=== PATIENT | female | born 1955 | race Caucasian/White ===

== ENCOUNTER 2017-01-15 19:40 | Inpatient (IN) | payer MEDICARE ==
--- NOTE | 2017-01-15 19:56 | ED Physician Chart ---
Chief Complaint/HPI - Patient Information Date Seen:: 01/15/17 Time Seen:: 19:30 Chief Complaint:: pruritic rash History of Present Illness:: patient has had a widespread pruritic rash (not on face, scalp, neck but especially prominent in groin) for 4 months. Has seen icu specialist 4 times and been to EDs twice. Dryer And Washer Mechanic diagnosed dermatitis and prescribed a cream without improvement; did not mention possible scabies. Patient has had a 30 lb weight loss over the last 4 months. Allergies:: Allergies Allergy/AdvReac Type Severity Reaction Status Date / Time clonidine Allergy Verified 07/19/16 04:54 Penicillins [PCN] Allergy Verified 07/19/16 04:54 Historian:: Patient, EMS Review:: Nurse's Note Reviewed Review of Systems - Review of Systems General/Constitutional: No fever, No chills Skin: Skin lesions, Rash Head: No headache Eyes: No loss of vision ENT: No earache Neck: No neck pain, No swelling Cardio Vascular: No chest pain, No palpitations Pulmonary: No SOB GI: No nausea, No vomiting, No diarrhea G/U: No dysuria, No frequency Musculoskeletal: No bone or joint pain, No back pain Endocrine: No polyuria, No polydipsia Psychiatric: No prior psych history Hematopoietic: No bruising Allergic/Immuno: No urticaria, No angioedema Neurological: No syncope Past Medical History - Past Medical History Past Medical History: HTN, Other (depression; tinea pedis; Alb[place]'s disease; bipolar) Family History: None Social History: Smoker, Care Facility Surgical History: None Psychiatricy History: Depression, Bipolar Medication: Reviewed Family Medical History - Family Member Mother History Unknown: Yes Ethnicity: Unknown Living Status: Unknown Physical Exam - Physical Examination General/Constitutional: Well-developed, well-nourished, Alert, No distress Head: Atraumatic Eyes: Lids, conjuctiva normal, PERRL Skin: No rash, No ecchymosis Other Skin comments:: numerous small crusts from scratching noted ENMT: External ears, nose nl, TM canals nl, Nasal exam nl, Lips, teeth, gums nl Neck: No nuchal rigidity Respiratory: Nl effort/Exclusion, Clear to Auscultation, No Wheeze/Rhonchi/Rales Cardio Vascular: RRR, No murmur, gallop, rubs, NL S1 S2 GI: No tenderness/rebounding/guarding, No organomegaly, No hernia, Normal BS's, Nondistended, No mass/bruits, No McBurney tenderness : No CVA tenderness Other Extremities comments:: skin lesions noted as stated under skin. Neuro/Psych: Alert/oriented, No focal deficits Misc: No paraspinal tenderness Labs/Radiology/EKG Results - Lab Results Comments:: Laboratory Results - last 24 hr 01/15/17 01/15/17 21:06 21:06 WBC 13.1 H RBC 4.79 Hgb 15.0 Hct 44.9 MCV 93.7 MCH 31.3 H MCHC Differential 33.4 RDW 13.6 Plt Count 248 MPV 8.6 Neutrophils % 57.6 Lymphocytes % 26.6 Monocytes % 3.2 Eosinophils % 12.4 H Basophils % 0.2 Sodium 138 Potassium 4.1 Chloride 103 Carbon Dioxide 31.6 H Anion Gap 7.5 BUN 26 H Creatinine 1.3 H Est GFR ( Amer) 53.7 Est GFR (Non-Af Amer) 44.4 BUN/Creatinine Ratio 20.0 Glucose 103 Calcium 9.8 ED Septic Shock - . Is Septic Shock (SBP<90, OR Lactate>4 mmol\L) present?: No Reassessment (Disposition) - Reassessment Reassessment Condition:: Unchanged - Diagnosis Diagnosis:: leukocytosis; scabies - Patient Disposition Admitted to:: Med/Surg Spoke to:: Estela Shirley Admitting Medical Physician:: Estela Shirley Condition at Disposition:: Stable, Unchanged
[2017-01-15 21:17] LABS: % BASOPHILS 0.2 % (0.0-2.0); % EOSINOPHILS 12.4 % (0.0-5.0); % LYMPHOCYTES 26.6 % (20.0-50.0); % MONOCYTES 3.2 % (2.0-10.0); % NEUTROPHILS 57.6 % (40.0-80.0); HEMATOCRIT 44.9 % (35.0-45.0); MEAN CELL VOLUME 93.7 fl (81-100); MEAN CORPUSCULAR HEMOGLOBIN 31.3 pg (27.0-31.0); MEAN CORPUSCULAR HGB CONC 33.4 pg (28.0-36.0); MEAN PLATELET VOLUME 8.6 fl; NEUTROPHILE ABSOLUTE 7.6 Th/cmm (1.8-8.0); PLATELET COUNT 248 Th/cmm (150-400); RED BLOOD COUNT 4.79 Mil/cmm (3.80-5.10); RED CELL DISTRIBUTION WIDTH 13.6 % (11.5-20.0)
[2017-01-15 21:26] LABS: WHITE BLOOD COUNT 13.1 Th/cmm (4.8-10.8)
[2017-01-15 21:30] LABS: ANION GAP 7.5 (7.0-16.0); CALCIUM SERUM 9.8 mg/dL (8.6-10.3); CARBON DIOXIDE 31.6 mEq/L (21.0-31.0); CREATININE - SERUM 1.3 mg/dL (0.6-1.2); POTASSIUM SERUM 4.1 mEq/L (3.5-5.1)
[2017-01-16 01:10] VITALS: BP 135/80
[2017-01-16] MEDS ORDERED: Maalox 30 mL Cup PO PRN (02:10)
[2017-01-16 08:12] LABS: URINE BILIRUBIN NEGATIVE (NEGATIVE); URINE BLOOD NEGATIVE (NEGATIVE); URINE COLOR YELLOW; URINE GLUCOSE (UA) NEGATIVE (NEGATIVE); URINE KETONE NEGATIVE (NEGATIVE); URINE PROTEIN NEGATIVE (NEGATIVE); URINE UROBILINOGEN 0.2 E.U./dL (0.2 - 1.0)
[2017-01-16 08:14] LABS: URINE BACTERIA NONE SEEN /hpf (NONE SEEN); URINE EPITHELIAL CELLS OCCASIONAL /lpf (FEW); URINE RBC NONE SEEN /hpf (0-5); URINE WBC NONE SEEN /hpf (0-5)
[2017-01-16] MEDS: Lactulose 10 Gm/15 mL 30mL UDC PO SCH (10:43)
[2017-01-16] MEDS: NIFEdipine 30 mg ER Tab PO SCH (10:44)
[2017-01-16] MEDS: Nystatin Cream 100,000 u/gm Cream 15 gm TP SCH ×2 (10:48→16:40)
[2017-01-16] MEDS ORDERED: VTE Chemical Prophylaxis Screen/Admission MC PRN (14:00)
--- NOTE | 2017-01-16 15:16 | General Progress Note ---
Objective - Results Result Diagrams: 01/15/17 21:06 01/15/17 21:06 Recent Labs: Laboratory Last Values WBC 13.1 Th/cmm (4.8-10.8) H 01/15/17 21:06 RBC 4.79 Mil/cmm (3.80-5.10) 01/15/17 21:06 Hgb 15.0 gm/dL (11.7-15.5) 01/15/17 21:06 Hct 44.9 % (35.0-45.0) 01/15/17 21:06 MCV 93.7 fl (81-100) 01/15/17 21:06 MCH 31.3 pg (27.0-31.0) H 01/15/17 21:06 MCHC Differential 33.4 pg (28.0-36.0) 01/15/17 21:06 RDW 13.6 % (11.5-20.0) 01/15/17 21:06 Plt Count 248 Th/cmm (150-400) 01/15/17 21:06 MPV 8.6 fl 01/15/17 21:06 Neutrophils % 57.6 % (40.0-80.0) 01/15/17 21:06 Lymphocytes % 26.6 % (20.0-50.0) 01/15/17 21:06 Monocytes % 3.2 % (2.0-10.0) 01/15/17 21:06 Eosinophils % 12.4 % (0.0-5.0) H 01/15/17 21:06 Basophils % 0.2 % (0.0-2.0) 01/15/17 21:06 Sodium 138 mEq/L (136-145) 01/15/17 21:06 Potassium 4.1 mEq/L (3.5-5.1) 01/15/17 21:06 Chloride 103 mEq/L (98-107) 01/15/17 21:06 Carbon Dioxide 31.6 mEq/L (21.0-31.0) H 01/15/17 21:06 Anion Gap 7.5 (7.0-16.0) 01/15/17 21:06 BUN 26 mg/dL (7-25) H 01/15/17 21:06 Creatinine 1.3 mg/dL (0.6-1.2) H 01/15/17 21:06 Est GFR ( Amer) 53.7 ml/min (>90) 01/15/17 21:06 Est GFR (Non-Af Amer) 44.4 ml/min 01/15/17 21:06 BUN/Creatinine Ratio 20.0 01/15/17 21:06 Glucose 103 mg/dL (70-105) 01/15/17 21:06 Calcium 9.8 mg/dL (8.6-10.3) 01/15/17 21:06 Urine Source CLEAN C 01/16/17 03:30 Urine Color YELLOW 01/16/17 03:30 Urine Clarity SL. CLOUDY (CLEAR) 01/16/17 03:30 Urine pH 7.0 01/16/17 03:30 Ur Specific [place] 1.020 (1.005-1.030) 01/16/17 03:30 Urine Protein NEGATIVE mg/dL (NEGATIVE) 01/16/17 03:30 Urine Glucose (UA) NEGATIVE mg/dL (NEGATIVE) 01/16/17 03:30 Urine Ketones NEGATIVE mg/dL (NEGATIVE) 01/16/17 03:30 Urine Blood NEGATIVE (NEGATIVE) 01/16/17 03:30 Urine Nitrate NEGATIVE (NEGATIVE) 01/16/17 03:30 Urine Bilirubin NEGATIVE (NEGATIVE) 01/16/17 03:30 Urine Urobilinogen 0.2 E.U./dL (0.2 - 1.0) 01/16/17 03:30 Ur Leukocyte Esterase NEGATIVE (NEGATIVE) 01/16/17 03:30 Urine RBC NONE SEEN /hpf (0-5) 01/16/17 03:30 Urine WBC NONE SEEN /hpf (0-5) 01/16/17 03:30 Ur Epithelial Cells OCCASIONAL /lpf (FEW) 01/16/17 03:30 Urine Bacteria NONE SEEN /hpf (NONE SEEN) 01/16/17 03:30 - Physical Exam Vitals and I&O: Vital Signs Temp 97.3 F 01/16/17 04:00 Pulse 79 01/16/17 10:46 Resp 18 01/16/17 04:00 BP 147/95 01/16/17 10:46 Pulse Ox 93 01/16/17 04:00 Intake & Output 03/16/17 03/17/17 03/17/17 18:59 06:59 18:59 Intake Total 200 200 Balance 200 200 Intake: Oral 200 200 Other: # Voids 2 # Bowel Movements 0 Stool Characteristics Formed Active Medications: Current Medications Acetaminophen (Tylenol) 650 mg PO Q4HR PRN PRN Reason: Pain or Fever >101 Stop: 03/17/17 02:09 Al Hydrox/Mg Hydrox/Simethicone (Maalox) 30 ml PO Q4HR PRN PRN Reason: GI DISTRESS Stop: 03/17/17 02:09 Alprazolam (Xanax) 1 mg PO BID IRIS Stop: 03/17/17 08:59 Alprazolam (Xanax) 0.5 mg PO BID PRN; Protocol PRN Reason: Anxiety Stop: 03/17/17 02:09 Aripiprazole (Abilify) 15 mg PO DAILY [facility]IS PRN Reason: Protocol Stop: 03/17/17 08:59 Atenolol (Tenormin) 50 mg PO BID IRIS Stop: 03/17/17 08:59 Last Admin: 01/16/17 10:45 Dose: 50 mg Atorvastatin Calcium (Lipitor) 40 mg PO HS IRIS PRN Reason: Protocol Stop: 03/17/17 20:59 Diphenhydramine HCl (Benadryl) 50 mg PO TID PRN PRN Reason: Itching Stop: 03/17/17 02:19 Doxycycline Hyclate (Vibramycin) 100 mg PO Q12HR [facility] Stop: 03/17/17 14:29 Fluocinonide (Lidex 0.05%) 1 appl TP BID IRIS Stop: 03/17/17 08:59 Last Admin: 01/16/17 10:48 Dose: 1 appl Heparin Sodium (Porcine) (Heparin) 5,000 units SUBQ Q12H [facility] Stop: 03/17/17 20:59 Ceftriaxone Sodium 1 gm/ (Dextrose) 50 mls @ 100 mls/hr IV Q24H [facility] Stop: 03/17/17 20:59 Lactulose (Cephulac) 20 gm PO DAILY [facility] Stop: 03/17/17 08:59 Last Admin: 01/16/17 10:43 Dose: Not Given Lisinopril (Zestril) 20 mg PO BID IRIS Stop: 03/17/17 08:59 Last Admin: 01/16/17 10:46 Dose: Not Given Lorazepam (Ativan) 2 mg PO BID IRIS PRN Reason: Protocol Stop: 03/17/17 08:59 Mirtazapine (Remeron) 30 mg PO HS IRIS PRN Reason: Protocol Stop: 03/17/17 20:59 Miscellaneous (Vte Chemical Prophylaxis Screen/ Admission) 1 ea [facility] PRN PRN PRN Reason: PROTOCOL Stop: 03/17/17 13:59 Naproxen (Naprosyn) 500 mg PO BID IRIS Stop: 03/17/17 08:59 Last Admin: 01/16/17 10:43 Dose: 500 mg Nifedipine (Procardia Xl) 90 mg PO DAILY [facility]IS Stop: 03/17/17 08:59 Last Admin: 01/16/17 10:44 Dose: 90 mg Nystatin (Mycostatin Cream) 1 appl TP BID IRIS Stop: 03/17/17 08:59 Last Admin: 01/16/17 10:48 Dose: 1 appl Valsartan (Diovan) 320 mg PO DAILY [facility] Stop: 03/17/17 08:59 Last Admin: 01/16/17 10:47 Dose: Not Given Zolpidem Tartrate (Ambien) 5 mg PO HS PRN PRN Reason: Insomnia Stop: 03/17/17 02:09 Last Admin: 01/16/17 02:45 Dose: 5 mg Assessment/Plan - Problem List Patient Problems: All Active Problems HTN (hypertension) (Acute) I10
--- NOTE | 2017-01-16 23:43 | History & Physical ---
HISTORY OF PRESENT ILLNESS: This patient was having pruritic rash and having skin lesions on and off on the groin area, ____. The patient was seen by liquor merchant and was diagnosed with dermatitis and was given cream without much improvement, complaining of ____ itching, and also the patient has lost a lot of weight, 30-pound weight loss. The patient has no fever, no chills, no swelling, no chest pain, no bony pain, and no syncope. PAST MEDICAL HISTORY: Hypertension, history of depression, [place] disease, history of bipolar and history of smoker. PHYSICAL EXAMINATION: GENERAL: Well-developed, well-nourished, alert, not in acute distress. SKIN: Lesions all over small numerous ____ scratches noted all over the body. HEAD: Normal. ENT: Normal. LUNGS: Bilaterally clear. CARDIOVASCULAR SYSTEM: S1 and S2 heard. ABDOMEN: Soft. Bowel sounds are heard. LABORATORY DATA: White count of 13.____, hemoglobin was ____, hematocrit was 34, and electrolytes were normal. DIAGNOSES: 1. Leukocytosis. 2. Rule out sepsis. 3. Skin lesions, dermatitis. 4. History of hypertension. 5. History of bipolar disorder. 6. History of D[place] disease. PLAN: The patient is being admitted and I will go ahead and work her up and given antibiotics cream. I will have Dr. Gelacio Haley see the patient. I will also have mattress filling machine tender see the patient, and I will follow the patient. JOB# [id number]
--- NOTE | 2017-01-17 00:55 | Consultation ---
INFECTIOUS DISEASE CONSULTATION REFERRING PHYSICIAN: Dr. Shirley. REASON FOR CONSULTATION: Generalized rash and leukocytosis. HISTORY OF PRESENT ILLNESS: The patient is a 61-year-old female with past medical history of hypertension, depression, [place] disease, and bipolar disorder, brought in from nursing facility for generalized pruritic rash all over the body except face, palms, and soles, for last 4 months. It was associated with leukocytosis with WBC count of 13,000. The patient denies any fever or chills. The patient has associated weight loss of 30 pounds. ID consult was called for further antibiotic management. PAST MEDICAL HISTORY: Hypertension, depression, tinea pedis, [place] disease, and bipolar disorder. ALLERGIES: NKDA. MEDICATIONS: See medication reconciliation sheet. Antibiotic recinos, the patient is on Rocephin. SOCIAL HISTORY: The patient lives at nursing facility. She is active smoker. Denies alcohol or drug use. FAMILY HISTORY: Noncontributory. REVIEW OF SYSTEMS: GENERAL: The patient denies any fever or chills. HEENT: No diplopia. No photophobia. NECK: Supple. RESPIRATORY: No cough. No shortness of breath. CARDIOVASCULAR: No chest pain or palpitation. GASTROINTESTINAL: No nausea, no vomiting, no diarrhea, and no constipation. GENITOURINARY: No dysuria. NEUROLOGIC: No headache, no dizziness, and no focal weakness. SKIN: The patient has generalized papular rash all over the body except for palms, soles, and face. PHYSICAL EXAMINATION: VITAL SIGNS: Current vital signs show temperature is 97.3, pulse 81, respirations 18, and blood pressure is 152/75. GENERAL: The patient is comfortable lying in the bed, not in acute distress. HEENT: Head is normocephalic and atraumatic. Oral cavity moist, pink tongue. Eyes: Pallor is present, no icterus. PERRLA. EOMI. NECK: Supple. No JVD. No carotid bruit. Trachea in midline. CHEST: Vesicular breath sounds bilaterally. No crackles or wheezing. HEART: S1 and S2 within normal limits. Regular rhythm. No murmur and no gallop. ABDOMEN: Soft, nontender, and nondistended. Bowel sounds are present. EXTREMITIES: No cyanosis, no clubbing, and no edema. NEUROLOGIC: Alert, awake, and oriented x 3. No focal neuro deficit. SKIN: The patient has generalized papular rash all over the body, pinkish in color throughout. There is no rash on the face, soles, and palms. LABORATORY DATA: Current lab shows WBC count is 13,100, hemoglobin is 15, hematocrit 44.9, platelets are 248,000, neutrophils 57.6%. Sodium 138, potassium 4.1, chloride 103, bicarb is 31.6, BUN 26, creatinine 1.3, and glucose is 103. Urinalysis shows negative nitrite and negative leukoesterase. Blood cultures are pending. IMPRESSION: 1. Generalized rash for last 4 months, unknown etiology, dermatitis. 2. Leukocytosis, most likely reactive, less likely septic. 3. Bipolar disorder. 4. Depression. 5. Hypertension. RECOMMENDATIONS: 1. May get skin biopsy and get Dr. Peres for skin biopsy. 2. Continue Rocephin empirically. Add doxycycline empirically. Thank you, Dr. Shirley for involving me taking care of this patient. JOB# [id number] [facility]
[2017-01-17] MEDS: Nystatin Cream 100,000 u/gm Cream 15 gm TP SCH ×2 (08:48→16:26)
[2017-01-17] MEDS: NIFEdipine 30 mg ER Tab PO SCH (08:49)
[2017-01-17] MEDS: Lactulose 10 Gm/15 mL 30mL UDC PO SCH (08:55)
--- NOTE | 2017-01-17 08:56 | General Progress Note ---
Objective - Results Result Diagrams: 01/15/17 21:06 01/15/17 21:06 Recent Labs: Laboratory Last Values WBC 13.1 Th/cmm (4.8-10.8) H 01/15/17 21:06 RBC 4.79 Mil/cmm (3.80-5.10) 01/15/17 21:06 Hgb 15.0 gm/dL (11.7-15.5) 01/15/17 21:06 Hct 44.9 % (35.0-45.0) 01/15/17 21:06 MCV 93.7 fl (81-100) 01/15/17 21:06 MCH 31.3 pg (27.0-31.0) H 01/15/17 21:06 MCHC Differential 33.4 pg (28.0-36.0) 01/15/17 21:06 RDW 13.6 % (11.5-20.0) 01/15/17 21:06 Plt Count 248 Th/cmm (150-400) 01/15/17 21:06 MPV 8.6 fl 01/15/17 21:06 Neutrophils % 57.6 % (40.0-80.0) 01/15/17 21:06 Lymphocytes % 26.6 % (20.0-50.0) 01/15/17 21:06 Monocytes % 3.2 % (2.0-10.0) 01/15/17 21:06 Eosinophils % 12.4 % (0.0-5.0) H 01/15/17 21:06 Basophils % 0.2 % (0.0-2.0) 01/15/17 21:06 Sodium 138 mEq/L (136-145) 01/15/17 21:06 Potassium 4.1 mEq/L (3.5-5.1) 01/15/17 21:06 Chloride 103 mEq/L (98-107) 01/15/17 21:06 Carbon Dioxide 31.6 mEq/L (21.0-31.0) H 01/15/17 21:06 Anion Gap 7.5 (7.0-16.0) 01/15/17 21:06 BUN 26 mg/dL (7-25) H 01/15/17 21:06 Creatinine 1.3 mg/dL (0.6-1.2) H 01/15/17 21:06 Est GFR ( Amer) 53.7 ml/min (>90) 01/15/17 21:06 Est GFR (Non-Af Amer) 44.4 ml/min 01/15/17 21:06 BUN/Creatinine Ratio 20.0 01/15/17 21:06 Glucose 103 mg/dL (70-105) 01/15/17 21:06 Calcium 9.8 mg/dL (8.6-10.3) 01/15/17 21:06 Urine Source CLEAN C 01/16/17 03:30 Urine Color YELLOW 01/16/17 03:30 Urine Clarity SL. CLOUDY (CLEAR) 01/16/17 03:30 Urine pH 7.0 01/16/17 03:30 Ur Specific [place] 1.020 (1.005-1.030) 01/16/17 03:30 Urine Protein NEGATIVE mg/dL (NEGATIVE) 01/16/17 03:30 Urine Glucose (UA) NEGATIVE mg/dL (NEGATIVE) 01/16/17 03:30 Urine Ketones NEGATIVE mg/dL (NEGATIVE) 01/16/17 03:30 Urine Blood NEGATIVE (NEGATIVE) 01/16/17 03:30 Urine Nitrate NEGATIVE (NEGATIVE) 01/16/17 03:30 Urine Bilirubin NEGATIVE (NEGATIVE) 01/16/17 03:30 Urine Urobilinogen 0.2 E.U./dL (0.2 - 1.0) 01/16/17 03:30 Ur Leukocyte Esterase NEGATIVE (NEGATIVE) 01/16/17 03:30 Urine RBC NONE SEEN /hpf (0-5) 01/16/17 03:30 Urine WBC NONE SEEN /hpf (0-5) 01/16/17 03:30 Ur Epithelial Cells OCCASIONAL /lpf (FEW) 01/16/17 03:30 Urine Bacteria NONE SEEN /hpf (NONE SEEN) 01/16/17 03:30 - Physical Exam Vitals and I&O: Vital Signs Temp 97.2 F 01/17/17 07:48 Pulse 94 01/17/17 08:52 Resp 17 01/17/17 07:48 BP 185/95 01/17/17 08:52 Pulse Ox 94 01/17/17 07:48 Intake & Output 03/17/17 03/18/17 03/18/17 18:59 06:59 18:59 Intake Total 200 1100 Balance 200 1100 Intake: Intake, IV Amount 50 cefTRIAXone 1 gm In 50 Dextrose 5% 50 ml @ 100 mls/hr IV Q24H [facility] Rx#: [id number] Oral 200 1050 Other: # Voids 3 # Bowel Movements 0 Stool Characteristics Formed Active Medications: Current Medications Acetaminophen (Tylenol) 650 mg PO Q4HR PRN PRN Reason: Pain or Fever >101 Stop: 03/17/17 02:09 Al Hydrox/Mg Hydrox/Simethicone (Maalox) 30 ml PO Q4HR PRN PRN Reason: GI DISTRESS Stop: 03/17/17 02:09 Alprazolam (Xanax) 1 mg PO BID IRIS Stop: 03/17/17 08:59 Alprazolam (Xanax) 0.5 mg PO BID PRN; Protocol PRN Reason: Anxiety Stop: 03/17/17 02:09 Last Admin: 01/17/17 01:25 Dose: 0.5 mg Aripiprazole (Abilify) 15 mg PO DAILY [facility]IS PRN Reason: Protocol Stop: 03/17/17 08:59 Atenolol (Tenormin) 50 mg PO BID [facility]IS Stop: 03/17/17 08:59 Last Admin: 01/17/17 08:50 Dose: 50 mg Atorvastatin Calcium (Lipitor) 40 mg PO HS IRIS PRN Reason: Protocol Stop: 03/17/17 20:59 Last Admin: 01/16/17 21:04 Dose: 40 mg Diphenhydramine HCl (Benadryl) 50 mg PO TID PRN PRN Reason: Itching Stop: 03/17/17 02:19 Last Admin: 01/16/17 22:56 Dose: 50 mg Doxycycline Hyclate (Vibramycin) 100 mg PO Q12HR IRIS Stop: 03/17/17 14:29 Last Admin: 01/17/17 08:52 Dose: 100 mg Fluocinonide (Lidex 0.05%) 1 appl TP BID IRIS Stop: 03/17/17 08:59 Last Admin: 01/17/17 08:48 Dose: 1 appl Heparin Sodium (Porcine) (Heparin) 5,000 units SUBQ Q12H [facility]IS Stop: 03/17/17 20:59 Last Admin: 01/16/17 21:06 Dose: Not Given Ceftriaxone Sodium 1 gm/ (Dextrose) 50 mls @ 100 mls/hr IV Q24H [facility]IS Stop: 03/17/17 20:59 Last Infusion: 01/16/17 22:05 Dose: Infused Lactulose (Cephulac) 20 gm PO DAILY [facility]IS Stop: 03/17/17 08:59 Last Admin: 01/17/17 08:55 Dose: Not Given Lisinopril (Zestril) 20 mg PO BID IRIS Stop: 03/17/17 08:59 Last Admin: 01/17/17 08:52 Dose: 20 mg Lorazepam (Ativan) 2 mg PO BID IRIS PRN Reason: Protocol Stop: 03/17/17 08:59 Last Admin: 01/17/17 08:50 Dose: 2 mg Mirtazapine (Remeron) 30 mg PO HS IRIS PRN Reason: Protocol Stop: 03/17/17 20:59 Last Admin: 01/17/17 06:44 Dose: Not Given Miscellaneous (Vte Chemical Prophylaxis Screen/ Admission) 1 ea [facility] PRN PRN PRN Reason: PROTOCOL Stop: 03/17/17 13:59 Naproxen (Naprosyn) 500 mg PO BID IRIS Stop: 03/17/17 08:59 Last Admin: 01/17/17 08:52 Dose: 500 mg Nifedipine (Procardia Xl) 90 mg PO DAILY [facility] Stop: 03/17/17 08:59 Last Admin: 01/17/17 08:49 Dose: 90 mg Nystatin (Mycostatin Cream) 1 appl TP BID IRIS Stop: 03/17/17 08:59 Last Admin: 01/17/17 08:48 Dose: 1 appl Valsartan (Diovan) 320 mg PO DAILY [facility] Stop: 03/17/17 08:59 Last Admin: 01/17/17 08:51 Dose: 320 mg Zolpidem Tartrate (Ambien) 5 mg PO HS PRN PRN Reason: Insomnia Stop: 03/17/17 02:09 Last Admin: 01/16/17 21:04 Dose: 5 mg Assessment/Plan - Problem List Patient Problems: All Active Problems HTN (hypertension) (Acute) I10
--- NOTE | 2017-01-17 12:50 | General Progress Note ---
Subjective - Review of Systems Service Date: 01/17/17 Events since last encounter: will schedule for skin biopsy on 01/19/17 Objective - Results Result Diagrams: 01/15/17 21:06 01/15/17 21:06 Recent Labs: Laboratory Last Values WBC 13.1 Th/cmm (4.8-10.8) H 01/15/17 21:06 RBC 4.79 Mil/cmm (3.80-5.10) 01/15/17 21:06 Hgb 15.0 gm/dL (11.7-15.5) 01/15/17 21:06 Hct 44.9 % (35.0-45.0) 01/15/17 21:06 MCV 93.7 fl (81-100) 01/15/17 21:06 MCH 31.3 pg (27.0-31.0) H 01/15/17 21:06 MCHC Differential 33.4 pg (28.0-36.0) 01/15/17 21:06 RDW 13.6 % (11.5-20.0) 01/15/17 21:06 Plt Count 248 Th/cmm (150-400) 01/15/17 21:06 MPV 8.6 fl 01/15/17 21:06 Neutrophils % 57.6 % (40.0-80.0) 01/15/17 21:06 Lymphocytes % 26.6 % (20.0-50.0) 01/15/17 21:06 Monocytes % 3.2 % (2.0-10.0) 01/15/17 21:06 Eosinophils % 12.4 % (0.0-5.0) H 01/15/17 21:06 Basophils % 0.2 % (0.0-2.0) 01/15/17 21:06 Sodium 138 mEq/L (136-145) 01/15/17 21:06 Potassium 4.1 mEq/L (3.5-5.1) 01/15/17 21:06 Chloride 103 mEq/L (98-107) 01/15/17 21:06 Carbon Dioxide 31.6 mEq/L (21.0-31.0) H 01/15/17 21:06 Anion Gap 7.5 (7.0-16.0) 01/15/17 21:06 BUN 26 mg/dL (7-25) H 01/15/17 21:06 Creatinine 1.3 mg/dL (0.6-1.2) H 01/15/17 21:06 Est GFR ( Amer) 53.7 ml/min (>90) 01/15/17 21:06 Est GFR (Non-Af Amer) 44.4 ml/min 01/15/17 21:06 BUN/Creatinine Ratio 20.0 01/15/17 21:06 Glucose 103 mg/dL (70-105) 01/15/17 21:06 Calcium 9.8 mg/dL (8.6-10.3) 01/15/17 21:06 Urine Source CLEAN C 01/16/17 03:30 Urine Color YELLOW 01/16/17 03:30 Urine Clarity SL. CLOUDY (CLEAR) 01/16/17 03:30 Urine pH 7.0 01/16/17 03:30 Ur Specific [place] 1.020 (1.005-1.030) 01/16/17 03:30 Urine Protein NEGATIVE mg/dL (NEGATIVE) 01/16/17 03:30 Urine Glucose (UA) NEGATIVE mg/dL (NEGATIVE) 01/16/17 03:30 Urine Ketones NEGATIVE mg/dL (NEGATIVE) 01/16/17 03:30 Urine Blood NEGATIVE (NEGATIVE) 01/16/17 03:30 Urine Nitrate NEGATIVE (NEGATIVE) 01/16/17 03:30 Urine Bilirubin NEGATIVE (NEGATIVE) 01/16/17 03:30 Urine Urobilinogen 0.2 E.U./dL (0.2 - 1.0) 01/16/17 03:30 Ur Leukocyte Esterase NEGATIVE (NEGATIVE) 01/16/17 03:30 Urine RBC NONE SEEN /hpf (0-5) 01/16/17 03:30 Urine WBC NONE SEEN /hpf (0-5) 01/16/17 03:30 Ur Epithelial Cells OCCASIONAL /lpf (FEW) 01/16/17 03:30 Urine Bacteria NONE SEEN /hpf (NONE SEEN) 01/16/17 03:30 - Physical Exam Vitals and I&O: Vital Signs Temp 97.4 F 01/17/17 12:02 Pulse 91 01/17/17 12:02 Resp 18 01/17/17 12:02 BP 171/110 01/17/17 12:02 Pulse Ox 97 01/17/17 12:02 Intake & Output 01/16/17 01/17/17 01/17/17 18:59 06:59 18:59 Intake Total 200 1100 Balance 200 1100 Intake: Intake, IV Amount 50 cefTRIAXone 1 gm In 50 Dextrose 5% 50 ml @ 100 mls/hr IV Q24H [facility] Rx#: [id number] Oral 200 1050 Other: # Voids 3 # Bowel Movements 0 Stool Characteristics Formed Active Medications: Current Medications Acetaminophen (Tylenol) 650 mg PO Q4HR PRN PRN Reason: Pain or Fever >101 Stop: 03/17/17 02:09 Al Hydrox/Mg Hydrox/Simethicone (Maalox) 30 ml PO Q4HR PRN PRN Reason: GI DISTRESS Stop: 03/17/17 02:09 Alprazolam (Xanax) 1 mg PO BID IRIS Stop: 03/17/17 08:59 Alprazolam (Xanax) 0.5 mg PO BID PRN; Protocol PRN Reason: Anxiety Stop: 03/17/17 02:09 Last Admin: 01/17/17 01:25 Dose: 0.5 mg Aripiprazole (Abilify) 15 mg PO DAILY [facility] PRN Reason: Protocol Stop: 03/17/17 08:59 Last Admin: 01/17/17 09:50 Dose: 15 mg Atenolol (Tenormin) 50 mg PO BID IRIS Stop: 03/17/17 08:59 Last Admin: 01/17/17 08:50 Dose: 50 mg Atorvastatin Calcium (Lipitor) 40 mg PO HS IRIS PRN Reason: Protocol Stop: 03/17/17 20:59 Last Admin: 01/16/17 21:04 Dose: 40 mg Diphenhydramine HCl (Benadryl) 50 mg PO TID PRN PRN Reason: Itching Stop: 03/17/17 02:19 Last Admin: 01/17/17 12:37 Dose: 50 mg Doxycycline Hyclate (Vibramycin) 100 mg PO Q12HR [facility] Stop: 03/17/17 14:29 Last Admin: 01/17/17 08:52 Dose: 100 mg Fluocinonide (Lidex 0.05%) 1 appl TP BID [facility] Stop: 03/17/17 08:59 Last Admin: 01/17/17 08:48 Dose: 1 appl Heparin Sodium (Porcine) (Heparin) 5,000 units SUBQ Q12H [facility] Stop: 03/17/17 20:59 Last Admin: 01/17/17 08:56 Dose: Not Given Ceftriaxone Sodium 1 gm/ (Dextrose) 50 mls @ 100 mls/hr IV Q24H [facility] Stop: 03/17/17 20:59 Last Infusion: 01/16/17 22:05 Dose: Infused Lactulose (Cephulac) 20 gm PO DAILY [facility] Stop: 03/17/17 08:59 Last Admin: 01/17/17 08:55 Dose: Not Given Lisinopril (Zestril) 20 mg PO BID [facility] Stop: 03/17/17 08:59 Last Admin: 01/17/17 08:52 Dose: 20 mg Lorazepam (Ativan) 2 mg PO BID [facility]IS PRN Reason: Protocol Stop: 03/17/17 08:59 Last Admin: 01/17/17 08:50 Dose: 2 mg Mirtazapine (Remeron) 30 mg PO HS [facility]IS PRN Reason: Protocol Stop: 03/17/17 20:59 Last Admin: 01/17/17 06:44 Dose: Not Given Miscellaneous (Vte Chemical Prophylaxis Screen/ Admission) 1 ea MC PRN PRN PRN Reason: PROTOCOL Stop: 03/17/17 13:59 Naproxen (Naprosyn) 500 mg PO BID [facility] Stop: 03/17/17 08:59 Last Admin: 01/17/17 08:52 Dose: 500 mg Nifedipine (Procardia Xl) 90 mg PO DAILY [facility] Stop: 03/17/17 08:59 Last Admin: 01/17/17 08:49 Dose: 90 mg Nystatin (Mycostatin Cream) 1 appl TP BID [facility] Stop: 03/17/17 08:59 Last Admin: 01/17/17 08:48 Dose: 1 appl Valsartan (Diovan) 320 mg PO DAILY [facility] Stop: 03/17/17 08:59 Last Admin: 01/17/17 08:51 Dose: 320 mg Zolpidem Tartrate (Ambien) 5 mg PO HS PRN PRN Reason: Insomnia Stop: 03/17/17 02:09 Last Admin: 01/16/17 21:04 Dose: 5 mg Assessment/Plan - Problem List Patient Problems: All Active Problems HTN (hypertension) (Acute) I10
--- NOTE | 2017-01-17 15:17 | Consultation ---
PHYSICIAN REQUESTING CONSULTATION: Dr. Shirley. REASON FOR CONSULTATION: Depression. HISTORY OF PRESENT ILLNESS: This patient is a 61-year-old resident of a long-term facility in [place]. Information obtained by interviewing the patient as well as reviewing the admission papers. The patient is reported to have been feeling depressed and has been maintained on Remeron, but the patient at this time stating that her major problem is anxiety, and the patient is also being given 0.5 mg twice a day of the Xanax. The patient is stating that she has been doing fairly well and her sleep is noted to be fair with the medications. The patient is, however, not suicidal or homicidal, and motivated for treatment on an outpatient basis. PAST PSYCHIATRIC HISTORY: Reports that she was hospitalized at one time before in here. She states that there is no reason for her to be in the hospital at this time. MEDICAL HISTORY: The patient is being admitted for leukocytosis. SOCIAL HISTORY: The patient is a resident of the long-term facility. SUBSTANCE ABUSE HISTORY: None. MENTAL STATUS EXAMINATION: The patient is a 61-year-old, looking her stated age, cooperative. Eye contact is fair. Mood depressed. Affect is constricted. The patient is not suicidal or homicidal. Insight and judgment are fair. Impulse control seems to be fair. The patient is motivated to seek treatment. DIAGNOSTIC IMPRESSION: Major depressive disorder, recurrent and moderate. PLAN: To continue the patient with Remeron and Xanax and the patient is going to be closely monitored and once stabilized medically, the patient can be discharged. There is no need of acute psychiatric intervention at this time. [facility]# [id number]
--- NOTE | 2017-01-18 03:53 | Admit Criteria Form ---
Admit Criteria Forms - Admit Criteria Diagnosis: SYSTEMIC OR INFECTIOUS CONDITION Clinical Indications for Admission to Inpatient Care (Place 'X' for any and all applicable criteria): Hospital admission is needed for appropriate care of the patient because of ANY ONE of the following: []I. Hemodynamic instability indicated by ANY ONE of the following(1)(2)(3)(4 )(5): []a. Vital sign abnormality not readily corrected by appropriate treatment within 12 to 24 hours indicated by ANY ONE of the following: []i) Tachycardia that persists despite appropriate treatment []ii) Hypotension that persists despite appropriate treatment []iii)Orthostatic vital sign changes that persist despite appropriate treatment []b. Vital sign abnormality that is severe indicated by ANY ONE of the following: []i.Inadequate perfusion indicated by ANY ONE of the following: []1) Lactic acidosis (greater than 2 mmol/L) []2) New abnormal capillary refill (greater than 3 seconds) []3) Reduced urine output []4) New altered mental status []5) Myocardial Ischemia []ii. Mean arterial pressure [A] less than 60 mm Hg []iii. Mean arterial pressure[A] less than 70 mm Hg after 30 minutes of appropriate treatment (eg, fluid resuscitation) []iv. Sustained heart rate greater than 120 beats per minute in adult []v. IV inotropic or vasopressor medication required to maintain adequate blood pressure or perfusion []II. Systemic or infectious condition causing severe symptoms or findings not responsive to emergency or observation care treatment (as appropriate) indicated by ANY ONE of the following: []a. Cardiac arrhythmias of immediate concern(1)(2)(3) []b. Severe endocrine disorder (eg, thyrotoxicosis, adrenal insufficiency)(4)(5) []c. Seizures (eg, new or recurrent)(6) []d. New-onset end organ failure or dysfunction as indicated by ANY ONE of the following: []i. Acute unexplained hypoxemia (eg, not from lung infection or chronic disease)(7)(8)(9) []ii. Acute renal failure as indicated by new onset of ANY ONE of the following(10)(11)(12)(13)(14): []1) 3-fold rise in serum creatinine from baseline []2) Serum creatinine greater than 4 mg/dL (354 micromoles/L) with acute rise greater than 0.5 mg/dL (44.2 micromoles/L) []3) Reduction of more than 75% in estimated glomerular filtration rate from baseline. []4) Estimated glomerular filtration rate less than 35 mL/min/1.73m2 ( 0.59 mL/sec/1.73m2) in child younger than 18 years. []5) Cessation of urine output indicated by ALL of the following: []A. Adequate volume status []B. Inadequate urine output as indicated by ANY ONE of the following: []a. Urine output less than 0.3 mL/kg/hr for 24 hours []b. Anuria (urine output less than 0.1 mL/kg/hr) for 12 hours []iii. Acute mental status changes(15) []iv.Acute hepatic failure (eg, plasma bilirubin greater than 4 mg/dL ( 68 micromoles/L), new INR greater than 2.0)(16)(17) []e. Unmanageable nausea and vomiting(18) []f. New-onset or uncontrolled central diabetes insipidus(19)(20) []g. Clinically significant dehydration(18)(21) []h. Hypoglycemia(22) []i. Acidosis (pH less than 7.35) or alkalosis (pH greater than 7.45)( 22)(23) []j. Toxic drug level that indicates need for specific monitoring or treatment(24)(25) []k. Severe electrolyte abnormalities indicated by ALL of the following( 1)(2)(3): []i. Electrolytes and associated findings are not as expected for patient baseline or acceptable treatment effects. []ii. Severe abnormalities indicated by ANY ONE of the following: []1) Sodium less than 130 mEq/L (mmol/L) (new) []2) Sodium less than 135 mEq/L (mmol/L) with ANY ONE of the following: []A. Uncorrectable (to near normal or chronic baseline) after trial of outpatient and emergency treatment []B. Altered mental status []C. Seizures []D. Severe medical etiology requiring inpatient management (eg , heart failure, hypovolemia) []3) Sodium greater than 155 mEq/L (mmol/L) []4) Sodium greater than 150 mEq/L (mmol/L) with ANY ONE of the following: []A. Uncorrectable (to near normal or chronic baseline) with outpatient and emergency treatment []B. Altered mental status []C. Seizures []D. Severe medical etiology (eg, hypovolemia, diabetes insipidus) []5) Potassium less than 2.5 mEq/L (mmol/L) despite outpatient and emergency treatment []6) Potassium less than 3 mEq/L (mmol/L) with ANY ONE of the following : []A. Weakness []B. Cardiac abnormality (eg, arrhythmia, conduction disturbance ) []C. Cardiac ischemia []D. Ileus []E. Ongoing medical cause requiring inpatient management (eg, acute renal wasting or SIADH) []F. Other severe symptoms []7) Potassium greater than 6.5 mEq/L (mmol/L) []8) Potassium greater than 5 mEq/L (mmol/L) with ANY ONE of the following: []A. Uncorrectable (to near normal or chronic baseline) with outpatient and emergency treatment []B. Severe ECG findings[A] []C. Acute worsening of renal failure (creatinine greater than 2.5 mg/dL (221 micromoles/L) or significant elevation for age and size) []D. Severe weakness []E. Severe medical etiology (eg, hemolysis, infection, drug overdose) []9) Calcium less than 7 mg/dL (1.75 mmol/L) despite outpatient and emergency treatment(5) []10) Calcium less than 8 mg/dL (2 mmol/L) with significant symptoms or findings (eg, altered mental status, muscle spasms, seizures, breathing difficulty, cardiac abnormality (eg, arrhythmia or conduction disturbance))(5) []11) Calcium greater than 14 mg/dL (3.5 mmol/L)(5) []12) Calcium greater than 12 mg/dL (3 mmol/L) with ANY ONE of the following(5): []A. Uncorrectable (to near normal or chronic baseline) with outpatient and emergency treatment []B. Significant dehydration or hypovolemia as indicated by ALL of the following(3)(6)(7): []a. Not resolved with initial treatments []b. Clinically significant dehydration as indicated by ANY ONE of the following: [](1) Vomiting refractory to outpatient treatment (ie, precluding oral rehydration) [](2) Inability to drink [](3) Hypernatremia or other electrolyte abnormality unable to be corrected with outpatient and emergency treatment [](4) Failure to remain hydrated with outpatient therapy [](5) Reduced urine output [](6) Hypotension [](7) Serious cause for dehydration requiring acute hospitalization ( eg, bowel obstruction, increased intracranial pressure, infectious cause) [](8) Child with ANY ONE of the following(8): [](i) Severe abdominal tenderness [](ii) Adequate care not available at home [](iii) Severe dehydration (greater than 9% loss of body weight) []C. Significant symptoms or findings (eg, altered mental status , cardiac abnormality (eg, arrhythmia, conduction disturbance), malignant etiology requiring inpatient treatment) []13) Phosphorus less than 1 mg/dL (0.32 mmol/L) []14) Phosphorus less than 1.5 mg/dL (0.48 mmol/L) with ANY ONE of the following: []A. Patient unresponsive to outpatient and emergency treatment []B. Significant symptoms or findings (eg, weakness, altered mental status, breathing difficulty, seizures, rhabdomyolysis) []15) Phosphorus greater than 10 mg/dL (3.2 mmol/L) []16) Phosphorus greater than 4.5 mg/dL (1.45 mmol/L) (new) with ANY ONE of the following: []A. Severe medical etiology (eg, crush injury, acute renal failure) []B. Associated hypocalcemia with significant findings (eg, neurologic symptoms, altered mental status, muscle spasms, seizures, breathing difficulty, cardiac abnormality (eg, arrhythmia, conduction disturbance)) []16) Magnesium less than 1 mg/dL (0.41 mmol/L) []17) Magnesium less than 1.5 mg/dL (0.62 mmol/L) with ANY ONE of the following: []A. Patient unresponsive to outpatient and emergency treatment []B. Associated hypocalcemia with significant findings (eg, altered mental status, muscle spasms, seizures, breathing difficulty, cardiac abnormality (eg, arrhythmia, conduction disturbance)) []C. Associated hypokalemia (potassium less than 3 mEq/L (mmol/L )) with risk of arrhythmia []18) Magnesium greater than 4 mEq/L (2 mmol/L) []19) Magnesium greater than 2.5 mEq/L (1.25 mmol/L) with significant symptoms or findings (eg, weakness, altered mental status, cardiac abnormality (eg, arrhythmia, conduction disturbance), breathing difficulty, severe medical etiology (eg, renal failure, hypovolemia)) []20) Uric acid greater than 20 mg/dL (1190 micromoles/L)(9) []21) Uric acid greater than 8 mg/dL (476 micromoles/L) with significant symptoms or findings of tumor lysis syndrome (eg, creatinine greater than 1.5 times upper limit of normal, cardiac abnormality (eg, arrhythmia, conduction disturbance), seizure)(9) []III. High fever or other high-risk infection situation as indicated by ANY ONE of the following(26)(27)(28): []a. Outpatient and observation care antimicrobial treatment unavailable, not effective, or not appropriate []b. Documented bacteremia []c. Temperature greater than 104.9 degrees F (40.5 degrees C) (oral) []d. Temperature greater than 103.1 degrees F (39.5 degrees C) (oral) or less than 96.8 degrees F (36 degrees C) (rectal) that does not respond to emergency treatment and observation care []IV. High-risk febrile neutropenia[A] as indicated by ANY ONE of the following(29)(30)(31)(32): []a. Profound neutropenia[B] anticipated to extend for more than 7 days []b. Hemodynamic instability []c. Hypoxemia []d. Tachypnea []e. Altered mental status []f. New-onset abdominal pain []g. New-onset vomiting or diarrhea []h. Oral or gastrointestinal mucositis that interferes with swallowing or causes severe diarrhea []i. Focal infection (eg, cellulitis, pneumonia, central line or catheter infection, perirectal abscess) []j. Renal insufficiency (eg, GFR of less than 30 mL/min/1.73m2 (0.5 mL/sec /1.73m2)). []k. Severe liver dysfunction (transaminase levels greater than 5 times normal) []l. Platelet count less than 50,000/mm3 (50 x109/L)(33) []m. Leukemia or lymphoma induction therapy []n. Leukemia not in complete remission or with evidence of disease progression []o. Bone marrow transplant patient []p. Alemtuzumab being used for therapy []q. [employer] Association for Supportive Care in Cancer (MASCC) Risk Index score of less than 21[C](33)(35). []V. Isolation required (eg, tuberculosis that requires isolation, Ebola infection)[D](36)(37)(38)(39)(40) []. Gangrene that requires treatment beyond emergency or observation level care(41)(42) []VII. Antitoxin administration and ongoing observation required (eg, tetanus, botulism)(43)(44) []. Suspected infection with rapid progression or severe symptoms as indicated by ANY ONE of the following(45): []a. Streptococcal or staphylococcal toxic shock(46) []b. Diphtheria(47) []c. Hantavirus(48) []d. Severe acute respiratory syndrome(8)(49) []e. Anthrax(50) []f. Ebola[D](36)(37)(38) []g. Necrotizing soft tissue infection(41)(42) []h. Plague(50) []i. Other suspected infection that requires care beyond emergency or observation level care []VII. Severe adverse drug or systemic toxin reaction as indicated by ANY ONE of the following(24): []a. Serotonin syndrome(51)(52) []b. Neuroleptic malignant syndrome(51)(52) []c. Cholinergic syndrome with severe symptoms (eg, bronchorrhea, weakness , mental status changes, seizures)(53) []d. Anticholinergic syndrome []e. Sympathetic syndrome with severe symptoms (eg, seizures, mental status changes, cardiac dysrhythmias) []f. Other severe adverse drug or systemic toxin reaction that remains after emergency or observation level care (as appropriate) []VIII. Allergic reaction with severe symptoms (not responsive to emergency or observation care treatment as appropriate), including ANY ONE of the following(54): []a. Airway edema (pharyngeal, epiglottic, or laryngeal edema) []b. Stridor []c. Respiratory failure []d. Bronchospasm []e. Hypotension []IX. Environmental emergency (not responsive to emergency or observation care treatment as appropriate) as indicated by ANY ONE of the following(55)(56): []a. Hyperthermia []b. Heat stroke []c. Heat exhaustion []d. Hypothermia (temperature less than 95 degrees F (35 degrees C) rectal) (57) []e. Electrocution(58) []X. Complications of transplanted organ (ie, not covered elsewhere)[E] indicated by ANY ONE of the following(59): []a. Acute graft rejection (or graft vs. host disease)[F] requiring inpatient management (eg, intravenous immunosuppression)(60)(61)(62)( 63) []b. Acute failure of transplanted organ necessitating inpatient care (eg, cannot be managed in other setting) []c. Infection requiring inpatient management (eg, Hemodynamic instability, need for intravenous antimicrobial treatment)(64)(65) []d. Other complication of transplanted organ requiring inpatient management []XI. Systemic or Infectious Condition condition, symptom, or finding for which emergency and observation care have failed or are not considered appropriate. See General Criteria: Observation Care, General Admission Criteria or Pediatric General Admission Criteria guideline as appropriate. The original [facility] [employer] content created by [facility] has been revised. The portions of the content which have been revised are identified through the use of italic text or in bold and [facility] has neither reviewed nor approved the modified material. All other unmodified content is copyright [email or web address]. Please see references footnoted in the original [facility] edition 2016
[2017-01-18] MEDS: NIFEdipine 30 mg ER Tab PO SCH (08:34)
[2017-01-18] MEDS: Lactulose 10 Gm/15 mL 30mL UDC PO SCH (08:37)
[2017-01-18] MEDS: Nystatin Cream 100,000 u/gm Cream 15 gm TP SCH ×2 (08:38→16:16)
--- NOTE | 2017-01-18 12:44 | General Progress Note ---
Subjective - Review of Systems Service Date: 01/18/17 Events since last encounter: consult for pruritic rash for 4 months request for skin biopsy explained procedure to patient - wants second opinion Objective - Results Result Diagrams: 01/15/17 21:06 01/15/17 21:06 Recent Labs: Laboratory Last Values WBC 13.1 Th/cmm (4.8-10.8) H 01/15/17 21:06 RBC 4.79 Mil/cmm (3.80-5.10) 01/15/17 21:06 Hgb 15.0 gm/dL (11.7-15.5) 01/15/17 21:06 Hct 44.9 % (35.0-45.0) 01/15/17 21:06 MCV 93.7 fl (81-100) 01/15/17 21:06 MCH 31.3 pg (27.0-31.0) H 01/15/17 21:06 MCHC Differential 33.4 pg (28.0-36.0) 01/15/17 21:06 RDW 13.6 % (11.5-20.0) 01/15/17 21:06 Plt Count 248 Th/cmm (150-400) 01/15/17 21:06 MPV 8.6 fl 01/15/17 21:06 Neutrophils % 57.6 % (40.0-80.0) 01/15/17 21:06 Lymphocytes % 26.6 % (20.0-50.0) 01/15/17 21:06 Monocytes % 3.2 % (2.0-10.0) 01/15/17 21:06 Eosinophils % 12.4 % (0.0-5.0) H 01/15/17 21:06 Basophils % 0.2 % (0.0-2.0) 01/15/17 21:06 Sodium 138 mEq/L (136-145) 01/15/17 21:06 Potassium 4.1 mEq/L (3.5-5.1) 01/15/17 21:06 Chloride 103 mEq/L (98-107) 01/15/17 21:06 Carbon Dioxide 31.6 mEq/L (21.0-31.0) H 01/15/17 21:06 Anion Gap 7.5 (7.0-16.0) 01/15/17 21:06 BUN 26 mg/dL (7-25) H 01/15/17 21:06 Creatinine 1.3 mg/dL (0.6-1.2) H 01/15/17 21:06 Est GFR ( Amer) 53.7 ml/min (>90) 01/15/17 21:06 Est GFR (Non-Af Amer) 44.4 ml/min 01/15/17 21:06 BUN/Creatinine Ratio 20.0 01/15/17 21:06 Glucose 103 mg/dL (70-105) 01/15/17 21:06 Calcium 9.8 mg/dL (8.6-10.3) 01/15/17 21:06 Urine Source CLEAN C 01/16/17 03:30 Urine Color YELLOW 01/16/17 03:30 Urine Clarity SL. CLOUDY (CLEAR) 01/16/17 03:30 Urine pH 7.0 01/16/17 03:30 Ur Specific [place] 1.020 (1.005-1.030) 01/16/17 03:30 Urine Protein NEGATIVE mg/dL (NEGATIVE) 01/16/17 03:30 Urine Glucose (UA) NEGATIVE mg/dL (NEGATIVE) 01/16/17 03:30 Urine Ketones NEGATIVE mg/dL (NEGATIVE) 01/16/17 03:30 Urine Blood NEGATIVE (NEGATIVE) 01/16/17 03:30 Urine Nitrate NEGATIVE (NEGATIVE) 01/16/17 03:30 Urine Bilirubin NEGATIVE (NEGATIVE) 01/16/17 03:30 Urine Urobilinogen 0.2 E.U./dL (0.2 - 1.0) 01/16/17 03:30 Ur Leukocyte Esterase NEGATIVE (NEGATIVE) 01/16/17 03:30 Urine RBC NONE SEEN /hpf (0-5) 01/16/17 03:30 Urine WBC NONE SEEN /hpf (0-5) 01/16/17 03:30 Ur Epithelial Cells OCCASIONAL /lpf (FEW) 01/16/17 03:30 Urine Bacteria NONE SEEN /hpf (NONE SEEN) 01/16/17 03:30 - Physical Exam Vitals and I&O: Vital Signs Temp 98.4 F 01/18/17 11:51 Pulse 90 01/18/17 11:51 Resp 19 01/18/17 11:51 BP 154/89 01/18/17 11:51 Pulse Ox 94 01/18/17 11:51 Intake & Output 01/17/17 01/18/17 01/18/17 18:59 06:59 18:59 Intake Total 500 100 Balance 500 100 Intake: Oral 500 100 Other: # Voids 3 2 Active Medications: Current Medications Acetaminophen (Tylenol) 650 mg PO Q4HR PRN PRN Reason: Pain or Fever >101 Stop: 03/17/17 02:09 Al Hydrox/Mg Hydrox/Simethicone (Maalox) 30 ml PO Q4HR PRN PRN Reason: GI DISTRESS Stop: 03/17/17 02:09 Alprazolam (Xanax) 0.5 mg PO BID PRN; Protocol PRN Reason: Anxiety Stop: 03/17/17 02:09 Last Admin: 01/17/17 18:32 Dose: 0.5 mg Aripiprazole (Abilify) 15 mg PO DAILY IRIS PRN Reason: Protocol Stop: 03/17/17 08:59 Last Admin: 01/18/17 08:33 Dose: 15 mg Atenolol (Tenormin) 50 mg PO BID IRIS Stop: 03/17/17 08:59 Last Admin: 01/18/17 08:35 Dose: 50 mg Atorvastatin Calcium (Lipitor) 40 mg PO HS IRIS PRN Reason: Protocol Stop: 03/17/17 20:59 Last Admin: 01/17/17 20:51 Dose: 40 mg Diphenhydramine HCl (Benadryl) 50 mg PO TID PRN PRN Reason: Itching Stop: 03/17/17 02:19 Last Admin: 01/17/17 22:20 Dose: 50 mg Doxycycline Hyclate (Vibramycin) 100 mg PO Q12HR IRIS Stop: 03/17/17 14:29 Last Admin: 01/18/17 08:37 Dose: 100 mg Fluocinonide (Lidex 0.05%) 1 appl TP BID IRIS Stop: 03/17/17 08:59 Last Admin: 01/18/17 08:38 Dose: 1 appl Heparin Sodium (Porcine) (Heparin) 5,000 units SUBQ Q12H IRIS Stop: 03/17/17 20:59 Last Admin: 01/18/17 08:37 Dose: Not Given Ceftriaxone Sodium 1 gm/ (Dextrose) 50 mls @ 100 mls/hr IV Q24H IRIS Stop: 03/17/17 20:59 Last Admin: 01/17/17 20:51 Dose: 100 mls/hr Lactulose (Cephulac) 20 gm PO DAILY IRIS Stop: 03/17/17 08:59 Last Admin: 01/18/17 08:37 Dose: Not Given Lisinopril (Zestril) 20 mg PO BID IRIS Stop: 03/17/17 08:59 Last Admin: 01/18/17 08:36 Dose: 20 mg Mirtazapine (Remeron) 30 mg PO HS IRIS PRN Reason: Protocol Stop: 03/17/17 20:59 Last Admin: 01/17/17 20:52 Dose: 30 mg Miscellaneous (Vte Chemical Prophylaxis Screen/ Admission) 1 ea MC PRN PRN PRN Reason: PROTOCOL Stop: 03/17/17 13:59 Naproxen (Naprosyn) 500 mg PO BID IRIS Stop: 03/17/17 08:59 Last Admin: 01/18/17 08:36 Dose: 500 mg Nifedipine (Procardia Xl) 90 mg PO DAILY IRIS Stop: 03/17/17 08:59 Last Admin: 01/18/17 08:34 Dose: 90 mg Nystatin (Mycostatin Cream) 1 appl TP BID IRIS Stop: 03/17/17 08:59 Last Admin: 01/18/17 08:38 Dose: 1 appl Valsartan (Diovan) 320 mg PO DAILY IRIS Stop: 03/17/17 08:59 Last Admin: 01/18/17 08:33 Dose: 320 mg Zolpidem Tartrate (Ambien) 5 mg PO HS PRN PRN Reason: Insomnia Stop: 03/17/17 02:09 Last Admin: 01/16/17 21:04 Dose: 5 mg Assessment/Plan - Problem List Patient Problems: All Active Problems HTN (hypertension) (Acute) I10
--- NOTE | 2017-01-18 14:05 | General Progress Note ---
Subjective - Review of Systems Subjective: no distress Objective - Results Result Diagrams: 01/15/17 21:06 01/15/17 21:06 Recent Labs: Laboratory Last Values WBC 13.1 Th/cmm (4.8-10.8) H 01/15/17 21:06 RBC 4.79 Mil/cmm (3.80-5.10) 01/15/17 21:06 Hgb 15.0 gm/dL (11.7-15.5) 01/15/17 21:06 Hct 44.9 % (35.0-45.0) 01/15/17 21:06 MCV 93.7 fl (81-100) 01/15/17 21:06 MCH 31.3 pg (27.0-31.0) H 01/15/17 21:06 MCHC Differential 33.4 pg (28.0-36.0) 01/15/17 21:06 RDW 13.6 % (11.5-20.0) 01/15/17 21:06 Plt Count 248 Th/cmm (150-400) 01/15/17 21:06 MPV 8.6 fl 01/15/17 21:06 Neutrophils % 57.6 % (40.0-80.0) 01/15/17 21:06 Lymphocytes % 26.6 % (20.0-50.0) 01/15/17 21:06 Monocytes % 3.2 % (2.0-10.0) 01/15/17 21:06 Eosinophils % 12.4 % (0.0-5.0) H 01/15/17 21:06 Basophils % 0.2 % (0.0-2.0) 01/15/17 21:06 Sodium 138 mEq/L (136-145) 01/15/17 21:06 Potassium 4.1 mEq/L (3.5-5.1) 01/15/17 21:06 Chloride 103 mEq/L (98-107) 01/15/17 21:06 Carbon Dioxide 31.6 mEq/L (21.0-31.0) H 01/15/17 21:06 Anion Gap 7.5 (7.0-16.0) 01/15/17 21:06 BUN 26 mg/dL (7-25) H 01/15/17 21:06 Creatinine 1.3 mg/dL (0.6-1.2) H 01/15/17 21:06 Est GFR ( Amer) 53.7 ml/min (>90) 01/15/17 21:06 Est GFR (Non-Af Amer) 44.4 ml/min 01/15/17 21:06 BUN/Creatinine Ratio 20.0 01/15/17 21:06 Glucose 103 mg/dL (70-105) 01/15/17 21:06 Calcium 9.8 mg/dL (8.6-10.3) 01/15/17 21:06 Urine Source CLEAN C 01/16/17 03:30 Urine Color YELLOW 01/16/17 03:30 Urine Clarity SL. CLOUDY (CLEAR) 01/16/17 03:30 Urine pH 7.0 01/16/17 03:30 Ur Specific [place] 1.020 (1.005-1.030) 01/16/17 03:30 Urine Protein NEGATIVE mg/dL (NEGATIVE) 01/16/17 03:30 Urine Glucose (UA) NEGATIVE mg/dL (NEGATIVE) 01/16/17 03:30 Urine Ketones NEGATIVE mg/dL (NEGATIVE) 01/16/17 03:30 Urine Blood NEGATIVE (NEGATIVE) 01/16/17 03:30 Urine Nitrate NEGATIVE (NEGATIVE) 01/16/17 03:30 Urine Bilirubin NEGATIVE (NEGATIVE) 01/16/17 03:30 Urine Urobilinogen 0.2 E.U./dL (0.2 - 1.0) 01/16/17 03:30 Ur Leukocyte Esterase NEGATIVE (NEGATIVE) 01/16/17 03:30 Urine RBC NONE SEEN /hpf (0-5) 01/16/17 03:30 Urine WBC NONE SEEN /hpf (0-5) 01/16/17 03:30 Ur Epithelial Cells OCCASIONAL /lpf (FEW) 01/16/17 03:30 Urine Bacteria NONE SEEN /hpf (NONE SEEN) 01/16/17 03:30 - Physical Exam Vitals and I&O: Vital Signs Temp 98.4 F 01/18/17 11:51 Pulse 90 01/18/17 11:51 Resp 19 01/18/17 11:51 BP 154/89 01/18/17 11:51 Pulse Ox 94 01/18/17 11:51 Intake & Output 01/17/17 01/18/17 01/18/17 18:59 06:59 18:59 Intake Total 500 100 Balance 500 100 Intake: Oral 500 100 Other: # Voids 3 2 Active Medications: Current Medications Acetaminophen (Tylenol) 650 mg PO Q4HR PRN PRN Reason: Pain or Fever >101 Stop: 03/17/17 02:09 Al Hydrox/Mg Hydrox/Simethicone (Maalox) 30 ml PO Q4HR PRN PRN Reason: GI DISTRESS Stop: 03/17/17 02:09 Alprazolam (Xanax) 0.5 mg PO BID PRN; Protocol PRN Reason: Anxiety Stop: 03/17/17 02:09 Last Admin: 01/17/17 18:32 Dose: 0.5 mg Aripiprazole (Abilify) 15 mg PO DAILY IRIS PRN Reason: Protocol Stop: 03/17/17 08:59 Last Admin: 01/18/17 08:33 Dose: 15 mg Atenolol (Tenormin) 50 mg PO BID IRIS Stop: 03/17/17 08:59 Last Admin: 01/18/17 08:35 Dose: 50 mg Atorvastatin Calcium (Lipitor) 40 mg PO HS IRIS PRN Reason: Protocol Stop: 03/17/17 20:59 Last Admin: 01/17/17 20:51 Dose: 40 mg Diphenhydramine HCl (Benadryl) 50 mg PO TID PRN PRN Reason: Itching Stop: 03/17/17 02:19 Last Admin: 01/17/17 22:20 Dose: 50 mg Doxycycline Hyclate (Vibramycin) 100 mg PO Q12HR IRIS Stop: 03/17/17 14:29 Last Admin: 01/18/17 08:37 Dose: 100 mg Fluocinonide (Lidex 0.05%) 1 appl TP BID IRIS Stop: 03/17/17 08:59 Last Admin: 01/18/17 08:38 Dose: 1 appl Heparin Sodium (Porcine) (Heparin) 5,000 units SUBQ Q12H IRIS Stop: 03/17/17 20:59 Last Admin: 01/18/17 08:37 Dose: Not Given Ceftriaxone Sodium 1 gm/ (Dextrose) 50 mls @ 100 mls/hr IV Q24H IRIS Stop: 03/17/17 20:59 Last Admin: 01/17/17 20:51 Dose: 100 mls/hr Lactulose (Cephulac) 20 gm PO DAILY IRIS Stop: 03/17/17 08:59 Last Admin: 01/18/17 08:37 Dose: Not Given Lisinopril (Zestril) 20 mg PO BID IRIS Stop: 03/17/17 08:59 Last Admin: 01/18/17 08:36 Dose: 20 mg Mirtazapine (Remeron) 30 mg PO HS IRIS PRN Reason: Protocol Stop: 03/17/17 20:59 Last Admin: 01/17/17 20:52 Dose: 30 mg Miscellaneous (Vte Chemical Prophylaxis Screen/ Admission) 1 ea [facility] PRN PRN PRN Reason: PROTOCOL Stop: 03/17/17 13:59 Naproxen (Naprosyn) 500 mg PO BID [facility] Stop: 03/17/17 08:59 Last Admin: 01/18/17 08:36 Dose: 500 mg Nifedipine (Procardia Xl) 90 mg PO DAILY IRIS Stop: 03/17/17 08:59 Last Admin: 01/18/17 08:34 Dose: 90 mg Nystatin (Mycostatin Cream) 1 appl TP BID IRIS Stop: 03/17/17 08:59 Last Admin: 01/18/17 08:38 Dose: 1 appl Valsartan (Diovan) 320 mg PO DAILY [facility] Stop: 03/17/17 08:59 Last Admin: 01/18/17 08:33 Dose: 320 mg Zolpidem Tartrate (Ambien) 5 mg PO HS PRN PRN Reason: Insomnia Stop: 03/17/17 02:09 Last Admin: 01/16/17 21:04 Dose: 5 mg General: No acute distress, no Mild distress Neck: Supple Cardiovascular: Regular rate Lungs: Clear to auscultation Assessment/Plan - Problem List Patient Problems: All Active Problems HTN (hypertension) (Acute) I10 - Plan Plan: as per order sheet
[2017-01-19] MEDS: NIFEdipine 30 mg ER Tab PO SCH (08:20)
[2017-01-19] MEDS: Lactulose 10 Gm/15 mL 30mL UDC PO SCH (08:21)
[2017-01-19] MEDS: Nystatin Cream 100,000 u/gm Cream 15 gm TP SCH ×2 (08:22→16:33)
--- NOTE | 2017-01-19 09:22 | Consultation ---
REFERRING PHYSICIAN: Dr. Shirley. REASON FOR CONSULTATION: Skin biopsy. Thank you for referring this patient to me. HISTORY OF PRESENT ILLNESS: This is a 61-year-old female admitted because of generalized rash and leukocytosis. The patient claims that this has been present for 4 months, not associated with medication reaction. There is a lot of itching associated with this. Other comorbidities include hypertension, depression, [place] disease and bipolar disorder. LABORATORY STUDIES: The WBC was elevated at 13,100, eosinophils elevated to 12.4, BUN and creatinine is slightly elevated. The patient has been seen by Infectious Disease spa consultant and skin biopsy has been recommended. PHYSICAL EXAMINATION: ____ rash mostly in the body, particularly on the groin and the thigh regions. RECOMMENDATIONL: Excisional biopsy under local sedation. The patient, on further elaboration of the procedure, now wants a second opinion. We will need to resolve this problem with the patient and his primary care partner and consultants. JOB# [id number]
--- NOTE | 2017-01-19 12:28 | Infectious Disease Prog Note ---
Infectious Disease Subjective - Review of Systems Service Date: 01/19/17 Subjective: There is no new change, there is no fever. rash no change. Infectious Disease Objective - Results Result Diagrams: 01/15/17 21:06 01/15/17 21:06 Recent Labs: Laboratory Last Values WBC 13.1 Th/cmm (4.8-10.8) H 01/15/17 21:06 RBC 4.79 Mil/cmm (3.80-5.10) 01/15/17 21:06 Hgb 15.0 gm/dL (11.7-15.5) 01/15/17 21:06 Hct 44.9 % (35.0-45.0) 01/15/17 21:06 MCV 93.7 fl (81-100) 01/15/17 21:06 MCH 31.3 pg (27.0-31.0) H 01/15/17 21:06 MCHC Differential 33.4 pg (28.0-36.0) 01/15/17 21:06 RDW 13.6 % (11.5-20.0) 01/15/17 21:06 Plt Count 248 Th/cmm (150-400) 01/15/17 21:06 MPV 8.6 fl 01/15/17 21:06 Neutrophils % 57.6 % (40.0-80.0) 01/15/17 21:06 Lymphocytes % 26.6 % (20.0-50.0) 01/15/17 21:06 Monocytes % 3.2 % (2.0-10.0) 01/15/17 21:06 Eosinophils % 12.4 % (0.0-5.0) H 01/15/17 21:06 Basophils % 0.2 % (0.0-2.0) 01/15/17 21:06 Sodium 138 mEq/L (136-145) 01/15/17 21:06 Potassium 4.1 mEq/L (3.5-5.1) 01/15/17 21:06 Chloride 103 mEq/L (98-107) 01/15/17 21:06 Carbon Dioxide 31.6 mEq/L (21.0-31.0) H 01/15/17 21:06 Anion Gap 7.5 (7.0-16.0) 01/15/17 21:06 BUN 26 mg/dL (7-25) H 01/15/17 21:06 Creatinine 1.3 mg/dL (0.6-1.2) H 01/15/17 21:06 Est GFR ( Amer) 53.7 ml/min (>90) 01/15/17 21:06 Est GFR (Non-Af Amer) 44.4 ml/min 01/15/17 21:06 BUN/Creatinine Ratio 20.0 01/15/17 21:06 Glucose 103 mg/dL (70-105) 01/15/17 21:06 Calcium 9.8 mg/dL (8.6-10.3) 01/15/17 21:06 Urine Source CLEAN C 01/16/17 03:30 Urine Color YELLOW 01/16/17 03:30 Urine Clarity SL. CLOUDY (CLEAR) 01/16/17 03:30 Urine pH 7.0 01/16/17 03:30 Ur Specific [place] 1.020 (1.005-1.030) 01/16/17 03:30 Urine Protein NEGATIVE mg/dL (NEGATIVE) 01/16/17 03:30 Urine Glucose (UA) NEGATIVE mg/dL (NEGATIVE) 01/16/17 03:30 Urine Ketones NEGATIVE mg/dL (NEGATIVE) 01/16/17 03:30 Urine Blood NEGATIVE (NEGATIVE) 01/16/17 03:30 Urine Nitrate NEGATIVE (NEGATIVE) 01/16/17 03:30 Urine Bilirubin NEGATIVE (NEGATIVE) 01/16/17 03:30 Urine Urobilinogen 0.2 E.U./dL (0.2 - 1.0) 01/16/17 03:30 Ur Leukocyte Esterase NEGATIVE (NEGATIVE) 01/16/17 03:30 Urine RBC NONE SEEN /hpf (0-5) 01/16/17 03:30 Urine WBC NONE SEEN /hpf (0-5) 01/16/17 03:30 Ur Epithelial Cells OCCASIONAL /lpf (FEW) 01/16/17 03:30 Urine Bacteria NONE SEEN /hpf (NONE SEEN) 01/16/17 03:30 - Physical Exam Vitals and I&O: Vital Signs Temp 97.8 F 01/19/17 11:21 Pulse 104 01/19/17 11:21 Resp 17 01/19/17 11:21 BP 136/87 01/19/17 11:21 Pulse Ox 98 03/20/17 11:21 Intake & Output 01/18/17 01/19/17 01/19/17 18:59 06:59 18:59 Intake Total 600 100 Balance 600 100 Intake: Oral 600 100 Other: # Voids 3 3 Active Medications: Current Medications Acetaminophen (Tylenol) 650 mg PO Q4HR PRN PRN Reason: Pain or Fever >101 Stop: 03/17/17 02:09 Al Hydrox/Mg Hydrox/Simethicone (Maalox) 30 ml PO Q4HR PRN PRN Reason: GI DISTRESS Stop: 03/17/17 02:09 Alprazolam (Xanax) 0.5 mg PO BID PRN; Protocol PRN Reason: Anxiety Stop: 03/17/17 02:09 Last Admin: 01/17/17 18:32 Dose: 0.5 mg Aripiprazole (Abilify) 15 mg PO DAILY IRIS PRN Reason: Protocol Stop: 03/17/17 08:59 Last Admin: 01/19/17 08:18 Dose: 15 mg Atenolol (Tenormin) 50 mg PO BID IRIS Stop: 03/17/17 08:59 Last Admin: 01/19/17 08:20 Dose: 50 mg Atorvastatin Calcium (Lipitor) 40 mg PO HS IRIS PRN Reason: Protocol Stop: 03/17/17 20:59 Last Admin: 01/18/17 20:46 Dose: 40 mg Diphenhydramine HCl (Benadryl) 50 mg PO TID PRN PRN Reason: Itching Stop: 03/17/17 02:19 Last Admin: 01/18/17 16:20 Dose: 50 mg Doxycycline Hyclate (Vibramycin) 100 mg PO Q12HR IRIS Stop: 03/17/17 14:29 Last Admin: 01/19/17 08:19 Dose: 100 mg Fluocinonide (Lidex 0.05%) 1 appl TP BID [facility] Stop: 03/17/17 08:59 Last Admin: 01/19/17 08:21 Dose: 1 appl Heparin Sodium (Porcine) (Heparin) 5,000 units SUBQ Q12H IRIS Stop: 03/17/17 20:59 Last Admin: 01/19/17 08:21 Dose: Not Given Ceftriaxone Sodium 1 gm/ (Dextrose) 50 mls @ 100 mls/hr IV Q24H [facility] Stop: 03/17/17 20:59 Last Admin: 01/18/17 21:00 Dose: 100 mls/hr Lactulose (Cephulac) 20 gm PO DAILY IRIS Stop: 03/17/17 08:59 Last Admin: 01/19/17 08:21 Dose: Not Given Lisinopril (Zestril) 20 mg PO BID IRIS Stop: 03/17/17 08:59 Last Admin: 01/19/17 08:19 Dose: 20 mg Mirtazapine (Remeron) 30 mg PO HS IRIS PRN Reason: Protocol Stop: 03/17/17 20:59 Last Admin: 01/18/17 21:00 Dose: 30 mg Miscellaneous (Vte Chemical Prophylaxis Screen/ Admission) 1 ea [facility] PRN PRN PRN Reason: PROTOCOL Stop: 03/17/17 13:59 Naproxen (Naprosyn) 500 mg PO BID IRIS Stop: 03/17/17 08:59 Last Admin: 01/19/17 08:17 Dose: 500 mg Nifedipine (Procardia Xl) 90 mg PO DAILY IRIS Stop: 03/17/17 08:59 Last Admin: 01/19/17 08:20 Dose: 90 mg Nystatin (Mycostatin Cream) 1 appl TP BID IRIS Stop: 03/17/17 08:59 Last Admin: 01/19/17 08:22 Dose: 1 appl Valsartan (Diovan) 320 mg PO DAILY IRIS Stop: 03/17/17 08:59 Last Admin: 01/19/17 08:20 Dose: 320 mg Zolpidem Tartrate (Ambien) 5 mg PO HS PRN PRN Reason: Insomnia Stop: 03/17/17 02:09 Last Admin: 01/18/17 20:57 Dose: 5 mg General: no acute distress, well developed, well nourished HEENT: atraumatic, normocephalic, PERRLA, EOMI Neck: supple Cardiovascular: S1S2, regular Lungs: clear to auscultation bilaterally, clear to percussion Abdomen: soft, no tender, no distended Extremities: no cyanosis, no clubbing, no edema Neurological: awake, alert, oriented Skin: intact, rash Infectious Disease Assmt/Plan - Problem List Patient Problems: All Active Problems HTN (hypertension) (Acute) I10 - Assessment Assessment: 1. Generalized rash, uinknown etiology. 2. Leukocytosis: reactive. 3. Bipolar 4. Depression. 5. HTN. - Plan Plan: Contineu same treatment.
--- NOTE | 2017-01-20 02:06 | Consultation ---
DATE OF CONSULTATION: 01/19/2017 at 9:28 p.m. HISTORY OF PRESENT ILLNESS: The patient is a 61-year-old female with a past medical history of hypertension, depression, [place]'s disease, history of bipolar, and history of smoking, was admitted to the hospital through the Emergency Room for a pruritic rash and leukocytosis. 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 Reported weight loss of approximately 20-30 pounds according to the patient, unintentional. She denies any fever or chills. She denies any recent travel history or recent new drug use. The patient was seen by Dr. Peres, who reportedly recommended skin biopsy to establish a diagnosis. The patient at this time other than the fact that she is having some itchiness, but reportedly this rash seems to be improving. The patient has several consultants on this case including Infectious Disease and Psychiatry. PHYSICAL EXAMINATION: VITAL SIGNS: She is afebrile, her temperature is 98.2. Vital signs otherwise stable. HEENT AND NECK: Within normal limits. GENERAL: She is awake. She follows commands, in no acute distress. She has no neck, axillary, or inguinal lymphadenopathy. CHEST: Clear to auscultation bilaterally. She has no crackles, rales, rhonchi, or wheezing. CARDIOVASCULAR: Regular rhythm and rate. No murmurs, rubs, or gallops. S1 and S2 normal. SKIN: She has diffuse mild erythematous, slightly raised rash throughout her body, but mostly involving her lower abdomen and groin areas. NEUROVASCULAR AND EXTREMITIES: Examination otherwise normal. LABORATORY DATA: White blood cell count is 13.1, H and H is 15 and 44.9, platelet count is 248. Carbon dioxide is 31.6, BUN and creatinine is 26 and 1.3. UA, urine bacteria is not seen. MEDICATIONS: The patient is on Tylenol, Maalox, Xanax, Abilify, atenolol, Lipitor, Rocephin, Benadryl, Vibramycin, Lidex. No diagnostic radiographic studies performed. IMPRESSION AND PLAN: The patient is a 61-year-old female, admitted through the Emergency Room for a slightly erythematous rash diffusely, but mostly involving the lower abdomen and bilateral groin areas. She is fairly asymptomatic except for mild pruritus. She has no obvious signs of fever. She has a mild leukocytosis of 13.1 on 01/15/2017. CBC has not been repeated since that date. She is reportedly on contact precautions right now currently for the possibility of scabies. She is being treated empirically at this time with Lidex and Mycostatin cream and also on Vibramycin for antibiotic purposes. She does have a history of psychiatric issues. Dr. Peres had previously seen the patient and recommended a skin biopsy to establish a diagnosis of what this rash may be. I explained to the patient that Dr. Peres is a well-respected surgeon in the community and I think it is reasonable to proceed with the skin biopsy as recommended by Dr. Peres. He is certainly capable to perform this procedure safely and well. The other option would be to treat this for presumed scabies with Lidex. I would repeat the CBC to follow up the trend of the white blood cell count. This may be a self-limiting rash, certainly Benadryl will also help with the pruritic complaints that the patient has. Medical management for the above stated other problems. JOB# [id number]
--- NOTE | 2017-01-20 02:38 | Progress Notes ---
SUBJECTIVE: The patient was seen in her room having dinner. The patient appears to be irritable at this time. OBJECTIVE: HEENT: Head is atraumatic and normocephalic. SKIN: Flush, bilateral conjunctivae are clear for any injections. NECK: Supple. No JVD. CARDIOVASCULAR: S1 and S2 heard without murmur. PULMONARY: Clear to auscultation. GASTROINTESTINAL: Soft and nontender without guarding. MUSCULOSKELETAL: No edema and weakness noted. ASSESSMENT: 1. Scabies. 2. Leukocytosis. 3. Hypertension. 4. Depression. 5. Bipolar. PLAN: We will consult with surgeon to do skin biopsy and also we will follow up with ID doctor to continue IV antibiotics due to leukocytosis. JOB# [id number]
[2017-01-20 06:19] LABS: HEMATOCRIT 45.1 % (35.0-45.0); HEMOGLOBIN 15.6 gm/dL (11.7-15.5); MEAN CELL VOLUME 91.6 fl (81-100); MEAN CORPUSCULAR HEMOGLOBIN 31.7 pg (27.0-31.0); MEAN CORPUSCULAR HGB CONC 34.6 pg (28.0-36.0); MEAN PLATELET VOLUME 9.8 fl; RED BLOOD COUNT 4.92 Mil/cmm (3.80-5.10); RED CELL DISTRIBUTION WIDTH 13.6 % (11.5-20.0)
[2017-01-20 06:22] LABS: PLATELET COUNT 188 Th/cmm (150-400); WHITE BLOOD COUNT 15.7 Th/cmm (4.8-10.8)
[2017-01-20 06:36] LABS: ANION GAP 6.9 (7.0-16.0); BUN - UREA NITROGEN 23 mg/dL (7-25); CALCIUM SERUM 9.3 mg/dL (8.6-10.3); CARBON DIOXIDE 26.7 mEq/L (21.0-31.0); CHLORIDE 107 mEq/L (98-107); GLUCOSE 89 mg/dL (70-105); POTASSIUM SERUM 3.6 mEq/L (3.5-5.1); SODIUM SERUM 137 mEq/L (136-145)
[2017-01-20] MEDS: NIFEdipine 30 mg ER Tab PO SCH (08:45)
--- NOTE | 2017-01-20 09:17 | General Progress Note ---
Subjective - Review of Systems Events since last encounter: no distress patient awake alert Subjective: no distress patient laying in bed Objective - Results Result Diagrams: 01/20/17 05:06 01/20/17 05:06 Recent Labs: Laboratory Last Values WBC 15.7 Th/cmm (4.8-10.8) H 01/20/17 05:06 RBC 4.92 Mil/cmm (3.80-5.10) 01/20/17 05:06 Hgb 15.6 gm/dL (11.7-15.5) H 01/20/17 05:06 Hct 45.1 % (35.0-45.0) H 01/20/17 05:06 MCV 91.6 fl (81-100) 01/20/17 05:06 MCH 31.7 pg (27.0-31.0) H 01/20/17 05:06 MCHC Differential 34.6 pg (28.0-36.0) 01/20/17 05:06 RDW 13.6 % (11.5-20.0) 01/20/17 05:06 Plt Count 188 Th/cmm (150-400) D 01/20/17 05:06 MPV 9.8 fl 01/20/17 05:06 Neutrophils % 57.6 % (40.0-80.0) 01/15/17 21:06 Lymphocytes % 26.6 % (20.0-50.0) 01/15/17 21:06 Monocytes % 3.2 % (2.0-10.0) 01/15/17 21:06 Eosinophils % 12.4 % (0.0-5.0) H 01/15/17 21:06 Basophils % 0.2 % (0.0-2.0) 01/15/17 21:06 Sodium 137 mEq/L (136-145) 01/20/17 05:06 Potassium 3.6 mEq/L (3.5-5.1) 01/20/17 05:06 Chloride 107 mEq/L (98-107) 01/20/17 05:06 Carbon Dioxide 26.7 mEq/L (21.0-31.0) 01/20/17 05:06 Anion Gap 6.9 (7.0-16.0) L 01/20/17 05:06 BUN 23 mg/dL (7-25) 01/20/17 05:06 Creatinine 1.0 mg/dL (0.6-1.2) 01/20/17 05:06 Est GFR ( Amer) > 60.0 ml/min (>90) 01/20/17 05:06 Est GFR (Non-Af Amer) > 60.0 ml/min 01/20/17 05:06 BUN/Creatinine Ratio 23.0 01/20/17 05:06 Glucose 89 mg/dL (70-105) 01/20/17 05:06 Calcium 9.3 mg/dL (8.6-10.3) 01/20/17 05:06 Urine Source CLEAN C 01/16/17 03:30 Urine Color YELLOW 01/16/17 03:30 Urine Clarity SL. CLOUDY (CLEAR) 01/16/17 03:30 Urine pH 7.0 01/16/17 03:30 Ur Specific [place] 1.020 (1.005-1.030) 01/16/17 03:30 Urine Protein NEGATIVE mg/dL (NEGATIVE) 01/16/17 03:30 Urine Glucose (UA) NEGATIVE mg/dL (NEGATIVE) 01/16/17 03:30 Urine Ketones NEGATIVE mg/dL (NEGATIVE) 01/16/17 03:30 Urine Blood NEGATIVE (NEGATIVE) 01/16/17 03:30 Urine Nitrate NEGATIVE (NEGATIVE) 01/16/17 03:30 Urine Bilirubin NEGATIVE (NEGATIVE) 01/16/17 03:30 Urine Urobilinogen 0.2 E.U./dL (0.2 - 1.0) 01/16/17 03:30 Ur Leukocyte Esterase NEGATIVE (NEGATIVE) 01/16/17 03:30 Urine RBC NONE SEEN /hpf (0-5) 01/16/17 03:30 Urine WBC NONE SEEN /hpf (0-5) 01/16/17 03:30 Ur Epithelial Cells OCCASIONAL /lpf (FEW) 01/16/17 03:30 Urine Bacteria NONE SEEN /hpf (NONE SEEN) 01/16/17 03:30 - Physical Exam Vitals and I&O: Vital Signs Temp 98.0 F 01/20/17 00:00 Pulse 79 01/20/17 08:45 Resp 18 01/20/17 00:00 BP 144/68 01/20/17 08:45 Pulse Ox 98 01/20/17 00:00 Intake & Output 01/19/17 01/20/17 01/20/17 18:59 06:59 18:59 Intake Total 650 100 Balance 650 100 Intake: Oral 650 100 Other: # Voids 3 3 Active Medications: Current Medications Acetaminophen (Tylenol) 650 mg PO Q4HR PRN PRN Reason: Pain or Fever >101 Stop: 03/17/17 02:09 Al Hydrox/Mg Hydrox/Simethicone (Maalox) 30 ml PO Q4HR PRN PRN Reason: GI DISTRESS Stop: 03/17/17 02:09 Alprazolam (Xanax) 0.5 mg PO BID PRN; Protocol PRN Reason: Anxiety Stop: 03/17/17 02:09 Last Admin: 01/19/17 15:18 Dose: 0.5 mg Aripiprazole (Abilify) 15 mg PO DAILY IRIS PRN Reason: Protocol Stop: 03/17/17 08:59 Last Admin: 01/20/17 08:38 Dose: 15 mg Atenolol (Tenormin) 50 mg PO BID [facility] Stop: 03/17/17 08:59 Last Admin: 01/20/17 08:45 Dose: 50 mg Atorvastatin Calcium (Lipitor) 40 mg PO HS IRIS PRN Reason: Protocol Stop: 03/17/17 20:59 Last Admin: 01/19/17 21:50 Dose: 40 mg Diphenhydramine HCl (Benadryl) 50 mg PO TID PRN PRN Reason: Itching Stop: 03/17/17 02:19 Last Admin: 01/19/17 15:19 Dose: 50 mg Doxycycline Hyclate (Vibramycin) 100 mg PO Q12HR IRIS Stop: 03/17/17 14:29 Last Admin: 01/20/17 08:38 Dose: 100 mg Fluocinonide (Lidex 0.05%) 1 appl TP BID [facility] Stop: 03/17/17 08:59 Last Admin: 01/19/17 16:33 Dose: 1 appl Heparin Sodium (Porcine) (Heparin) 5,000 units SUBQ Q12H [facility] Stop: 03/17/17 20:59 Last Admin: 01/19/17 22:25 Dose: Not Given Ceftriaxone Sodium 1 gm/ (Dextrose) 50 mls @ 100 mls/hr IV Q24H [facility] Stop: 03/17/17 20:59 Last Admin: 01/19/17 21:50 Dose: 100 mls/hr Lactulose (Cephulac) 20 gm PO DAILY [facility] Stop: 03/17/17 08:59 Last Admin: 01/19/17 08:21 Dose: Not Given Lisinopril (Zestril) 20 mg PO BID [facility] Stop: 03/17/17 08:59 Last Admin: 01/20/17 08:38 Dose: 20 mg Mirtazapine (Remeron) 30 mg PO HS [facility] PRN Reason: Protocol Stop: 03/17/17 20:59 Last Admin: 01/19/17 21:50 Dose: 30 mg Miscellaneous (Vte Chemical Prophylaxis Screen/ Admission) 1 ea [facility] PRN PRN PRN Reason: PROTOCOL Stop: 03/17/17 13:59 Naproxen (Naprosyn) 500 mg PO BID [facility] Stop: 03/17/17 08:59 Last Admin: 01/20/17 08:38 Dose: 500 mg Nifedipine (Procardia Xl) 90 mg PO DAILY [facility] Stop: 03/17/17 08:59 Last Admin: 01/20/17 08:45 Dose: 90 mg Nystatin (Mycostatin Cream) 1 appl TP BID [facility] Stop: 03/17/17 08:59 Last Admin: 01/19/17 16:33 Dose: 1 appl Valsartan (Diovan) 320 mg PO DAILY [facility] Stop: 03/17/17 08:59 Last Admin: 01/20/17 08:45 Dose: 320 mg Zolpidem Tartrate (Ambien) 5 mg PO HS PRN PRN Reason: Insomnia Stop: 03/17/17 02:09 Last Admin: 01/19/17 22:18 Dose: 5 mg General: No acute distress HEENT: Atraumatic Neck: Supple Cardiovascular: Regular rate Lungs: Clear to auscultation Abdomen: Bowel sounds Assessment/Plan - Problem List Patient Problems: All Active Problems Depressed bipolar disorder (Acute) F31.30 Leukocytosis (Acute) D72.829 Scabies (Acute) HTN (hypertension) (Acute) I10 - Assessment Assessment: leukocytosis scabies bipolar disorder htn depression - Plan Plan: monitor vitals/diet labs f/up consultants
[2017-01-20 09:19] LABS: BAND NEUTROPHILE 1 % (0-10); BASOPHIL 1 % (0-3); EOSINOPHIL 19 % (0-5); NEUTROPHILS 62 % (40-80); PLATELET ESTIMATE ADEQUATE (NORMAL); PLATELET MORPHOLOGY NORMAL (NORMAL); TOTAL CELLS COUNTED 100
--- NOTE | 2017-01-20 10:53 | Infectious Disease Prog Note ---
Infectious Disease Subjective - Review of Systems Service Date: 01/20/17 Subjective: There is no new change, there is no fever. rash no change. Infectious Disease Objective - Results Result Diagrams: 01/20/17 05:06 01/20/17 05:06 Recent Labs: Laboratory Last Values WBC 15.7 Th/cmm (4.8-10.8) H 01/20/17 05:06 RBC 4.92 Mil/cmm (3.80-5.10) 01/20/17 05:06 Hgb 15.6 gm/dL (11.7-15.5) H 01/20/17 05:06 Hct 45.1 % (35.0-45.0) H 01/20/17 05:06 MCV 91.6 fl (81-100) 01/20/17 05:06 MCH 31.7 pg (27.0-31.0) H 01/20/17 05:06 MCHC Differential 34.6 pg (28.0-36.0) 01/20/17 05:06 RDW 13.6 % (11.5-20.0) 01/20/17 05:06 Plt Count 188 Th/cmm (150-400) D 01/20/17 05:06 MPV 9.8 fl 01/20/17 05:06 Neutrophils % 57.6 % (40.0-80.0) 01/15/17 21:06 Band Neutrophils % 1 % (0-10) 01/20/17 05:06 Lymphocytes % 26.6 % (20.0-50.0) 01/15/17 21:06 Monocytes % 3.2 % (2.0-10.0) 01/15/17 21:06 Eosinophils % 12.4 % (0.0-5.0) H 01/15/17 21:06 Basophils % 0.2 % (0.0-2.0) 01/15/17 21:06 Neutrophils (Manual) 62 % (40-80) 01/20/17 05:06 Lymphocytes 14 % (20-50) L 01/20/17 05:06 Monocytes 3 % (2-10) 01/20/17 05:06 Eosinophils 19 % (0-5) H 01/20/17 05:06 Basophils 1 % (0-3) 01/20/17 05:06 Platelet Estimate ADEQUATE (NORMAL) 01/20/17 05:06 Platelet Morphology NORMAL (NORMAL) 01/20/17 05:06 RBC Morph Micro Appear NORMAL (NORMAL) 01/20/17 05:06 Sodium 137 mEq/L (136-145) 01/20/17 05:06 Potassium 3.6 mEq/L (3.5-5.1) 01/20/17 05:06 Chloride 107 mEq/L (98-107) 01/20/17 05:06 Carbon Dioxide 26.7 mEq/L (21.0-31.0) 01/20/17 05:06 Anion Gap 6.9 (7.0-16.0) L 01/20/17 05:06 BUN 23 mg/dL (7-25) 01/20/17 05:06 Creatinine 1.0 mg/dL (0.6-1.2) 01/20/17 05:06 Est GFR ( Amer) > 60.0 ml/min (>90) 01/20/17 05:06 Est GFR (Non-Af Amer) > 60.0 ml/min 01/20/17 05:06 BUN/Creatinine Ratio 23.0 01/20/17 05:06 Glucose 89 mg/dL (70-105) 01/20/17 05:06 Calcium 9.3 mg/dL (8.6-10.3) 01/20/17 05:06 Urine Source CLEAN C 01/16/17 03:30 Urine Color YELLOW 01/16/17 03:30 Urine Clarity SL. CLOUDY (CLEAR) 01/16/17 03:30 Urine pH 7.0 01/16/17 03:30 Ur Specific [place] 1.020 (1.005-1.030) 01/16/17 03:30 Urine Protein NEGATIVE mg/dL (NEGATIVE) 01/16/17 03:30 Urine Glucose (UA) NEGATIVE mg/dL (NEGATIVE) 01/16/17 03:30 Urine Ketones NEGATIVE mg/dL (NEGATIVE) 01/16/17 03:30 Urine Blood NEGATIVE (NEGATIVE) 01/16/17 03:30 Urine Nitrate NEGATIVE (NEGATIVE) 01/16/17 03:30 Urine Bilirubin NEGATIVE (NEGATIVE) 01/16/17 03:30 Urine Urobilinogen 0.2 E.U./dL (0.2 - 1.0) 01/16/17 03:30 Ur Leukocyte Esterase NEGATIVE (NEGATIVE) 01/16/17 03:30 Urine RBC NONE SEEN /hpf (0-5) 01/16/17 03:30 Urine WBC NONE SEEN /hpf (0-5) 01/16/17 03:30 Ur Epithelial Cells OCCASIONAL /lpf (FEW) 01/16/17 03:30 Urine Bacteria NONE SEEN /hpf (NONE SEEN) 01/16/17 03:30 - Physical Exam Vitals and I&O: Vital Signs Temp 99.4 F 01/20/17 08:00 Pulse 79 01/20/17 08:45 Resp 18 01/20/17 08:00 BP 144/68 01/20/17 08:45 Pulse Ox 95 01/20/17 08:00 Intake & Output 01/19/17 01/20/17 01/20/17 18:59 06:59 18:59 Intake Total 650 100 240 Balance 650 100 240 Intake: Oral 650 100 240 Other: # Voids 3 3 3 Active Medications: Current Medications Acetaminophen (Tylenol) 650 mg PO Q4HR PRN PRN Reason: Pain or Fever >101 Stop: 03/17/17 02:09 Al Hydrox/Mg Hydrox/Simethicone (Maalox) 30 ml PO Q4HR PRN PRN Reason: GI DISTRESS Stop: 03/17/17 02:09 Alprazolam (Xanax) 0.5 mg PO BID PRN; Protocol PRN Reason: Anxiety Stop: 03/17/17 02:09 Last Admin: 01/19/17 15:18 Dose: 0.5 mg Aripiprazole (Abilify) 15 mg PO DAILY IRIS PRN Reason: Protocol Stop: 03/17/17 08:59 Last Admin: 01/20/17 08:38 Dose: 15 mg Atenolol (Tenormin) 50 mg PO BID IRIS Stop: 03/17/17 08:59 Last Admin: 01/20/17 08:45 Dose: 50 mg Atorvastatin Calcium (Lipitor) 40 mg PO HS IRIS PRN Reason: Protocol Stop: 03/17/17 20:59 Last Admin: 01/19/17 21:50 Dose: 40 mg Diphenhydramine HCl (Benadryl) 50 mg PO TID PRN PRN Reason: Itching Stop: 03/17/17 02:19 Last Admin: 01/19/17 15:19 Dose: 50 mg Doxycycline Hyclate (Vibramycin) 100 mg PO Q12HR IRIS Stop: 03/17/17 14:29 Last Admin: 01/20/17 08:38 Dose: 100 mg Fluocinonide (Lidex 0.05%) 1 appl TP BID IRIS Stop: 03/17/17 08:59 Last Admin: 01/19/17 16:33 Dose: 1 appl Heparin Sodium (Porcine) (Heparin) 5,000 units SUBQ Q12H IRIS Stop: 03/17/17 20:59 Last Admin: 01/19/17 22:25 Dose: Not Given Ceftriaxone Sodium 1 gm/ (Dextrose) 50 mls @ 100 mls/hr IV Q24H IRIS Stop: 03/17/17 20:59 Last Admin: 01/19/17 21:50 Dose: 100 mls/hr Lactulose (Cephulac) 20 gm PO DAILY IRIS Stop: 03/17/17 08:59 Last Admin: 01/19/17 08:21 Dose: Not Given Lisinopril (Zestril) 20 mg PO BID IRIS Stop: 03/17/17 08:59 Last Admin: 01/20/17 08:38 Dose: 20 mg Mirtazapine (Remeron) 30 mg PO HS IRIS PRN Reason: Protocol Stop: 03/17/17 20:59 Last Admin: 01/19/17 21:50 Dose: 30 mg Miscellaneous (Vte Chemical Prophylaxis Screen/ Admission) 1 ea MC PRN PRN PRN Reason: PROTOCOL Stop: 03/17/17 13:59 Naproxen (Naprosyn) 500 mg PO BID IRIS Stop: 03/17/17 08:59 Last Admin: 01/20/17 08:38 Dose: 500 mg Nifedipine (Procardia Xl) 90 mg PO DAILY IRIS Stop: 03/17/17 08:59 Last Admin: 01/20/17 08:45 Dose: 90 mg Nystatin (Mycostatin Cream) 1 appl TP BID IRIS Stop: 03/17/17 08:59 Last Admin: 01/19/17 16:33 Dose: 1 appl Valsartan (Diovan) 320 mg PO DAILY IRIS Stop: 03/17/17 08:59 Last Admin: 01/20/17 08:45 Dose: 320 mg Zolpidem Tartrate (Ambien) 5 mg PO HS PRN PRN Reason: Insomnia Stop: 03/17/17 02:09 Last Admin: 01/19/17 22:18 Dose: 5 mg General: no acute distress, well developed, well nourished HEENT: atraumatic, normocephalic, PERRLA, EOMI Neck: supple, no thyromegaly Cardiovascular: S1S2, regular Lungs: clear to auscultation bilaterally, clear to percussion Abdomen: soft, no tender, no distended Extremities: no cyanosis, no clubbing, no edema Neurological: awake, alert, oriented Skin: rash Infectious Disease Assmt/Plan - Problem List Patient Problems: All Active Problems Depressed bipolar disorder (Acute) F31.30 Leukocytosis (Acute) D72.829 Scabies (Acute) HTN (hypertension) (Acute) I10 - Assessment Assessment: 1. Generalized rash, uinknown etiology. 2. Leukocytosis: reactive. Imporoving on repeat lab. 3. Bipolar 4. Depression. 5. HTN. - Plan Plan: Contineu same treatment. Skin biopsy to establish the diagnosis.
[2017-01-20 11:22] LABS: HEMATOCRIT 45.8 % (35.0-45.0); HEMOGLOBIN 15.6 gm/dL (11.7-15.5); MEAN CELL VOLUME 92.3 fl (81-100); MEAN CORPUSCULAR HEMOGLOBIN 31.5 pg (27.0-31.0); MEAN CORPUSCULAR HGB CONC 34.1 pg (28.0-36.0); MEAN PLATELET VOLUME 9.3 fl; RED BLOOD COUNT 4.96 Mil/cmm (3.80-5.10); RED CELL DISTRIBUTION WIDTH 13.8 % (11.5-20.0)
[2017-01-20 11:25] LABS: WHITE BLOOD COUNT 18.1 Th/cmm (4.8-10.8)
[2017-01-20 11:26] LABS: PLATELET COUNT 245 Th/cmm (150-400)
[2017-01-20 12:25] LABS: BAND NEUTROPHILE 1 % (0-10); BASOPHIL 1 % (0-3); EOSINOPHIL 15 % (0-5); NEUTROPHILS 44 % (40-80); TOTAL CELLS COUNTED 100
[2017-01-20 12:26] LABS: PLATELET ESTIMATE ADEQUATE (NORMAL); PLATELET MORPHOLOGY NORMAL (NORMAL)
[2017-01-20] MEDS: Lactulose 10 Gm/15 mL 30mL UDC PO SCH (13:08)
[2017-01-20] MEDS: Nystatin Cream 100,000 u/gm Cream 15 gm TP SCH ×2 (13:08→17:11)
[2017-01-21 05:26] LABS: % BASOPHILS 0.3 % (0.0-2.0); % EOSINOPHILS 21.7 % (0.0-5.0); % LYMPHOCYTES 20.6 % (20.0-50.0); % MONOCYTES 6.5 % (2.0-10.0); % NEUTROPHILS 50.9 % (40.0-80.0); HEMATOCRIT 42.6 % (35.0-45.0); HEMOGLOBIN 14.5 gm/dL (11.7-15.5); MEAN CELL VOLUME 92.5 fl (81-100); MEAN CORPUSCULAR HEMOGLOBIN 31.6 pg (27.0-31.0); MEAN CORPUSCULAR HGB CONC 34.1 pg (28.0-36.0); MEAN PLATELET VOLUME 9.6 fl; NEUTROPHILE ABSOLUTE 7.9 Th/cmm (1.8-8.0); RED BLOOD COUNT 4.61 Mil/cmm (3.80-5.10); RED CELL DISTRIBUTION WIDTH 13.6 % (11.5-20.0)
[2017-01-21 05:29] LABS: PLATELET COUNT 169 Th/cmm (150-400); WHITE BLOOD COUNT 15.5 Th/cmm (4.8-10.8)
[2017-01-21 05:44] LABS: BUN - UREA NITROGEN 24 mg/dL (7-25); CALCIUM SERUM 9.4 mg/dL (8.6-10.3); CARBON DIOXIDE 29.8 mEq/L (21.0-31.0); CHLORIDE 108 mEq/L (98-107); GLUCOSE 86 mg/dL (70-105); POTASSIUM SERUM 3.8 mEq/L (3.5-5.1); SODIUM SERUM 138 mEq/L (136-145)
[2017-01-21] MEDS: NIFEdipine 30 mg ER Tab PO SCH (08:21)
[2017-01-21] MEDS: Lactulose 10 Gm/15 mL 30mL UDC PO SCH (08:29)
[2017-01-21] MEDS: Nystatin Cream 100,000 u/gm Cream 15 gm TP SCH (08:29)
--- NOTE | 2017-01-21 09:05 | General Progress Note ---
Subjective - Review of Systems Events since last encounter: no new changes no distress Subjective: no distress patient laying in bed Objective - Results Result Diagrams: 01/21/17 05:17 01/21/17 05:17 Recent Labs: Laboratory Last Values WBC 15.5 Th/cmm (4.8-10.8) H 01/21/17 05:17 RBC 4.61 Mil/cmm (3.80-5.10) 01/21/17 05:17 Hgb 14.5 gm/dL (11.7-15.5) 01/21/17 05:17 Hct 42.6 % (35.0-45.0) 01/21/17 05:17 MCV 92.5 fl (81-100) 01/21/17 05:17 MCH 31.6 pg (27.0-31.0) H 01/21/17 05:17 MCHC Differential 34.1 pg (28.0-36.0) 01/21/17 05:17 RDW 13.6 % (11.5-20.0) 01/21/17 05:17 Plt Count 169 Th/cmm (150-400) D 01/21/17 05:17 MPV 9.6 fl 01/21/17 05:17 Neutrophils % 50.9 % (40.0-80.0) 01/21/17 05:17 Band Neutrophils % 1 % (0-10) 01/20/17 11:10 Lymphocytes % 20.6 % (20.0-50.0) 01/21/17 05:17 Monocytes % 6.5 % (2.0-10.0) 01/21/17 05:17 Eosinophils % 21.7 % (0.0-5.0) H 01/21/17 05:17 Basophils % 0.3 % (0.0-2.0) 01/21/17 05:17 Neutrophils (Manual) 44 % (40-80) 01/20/17 11:10 Lymphocytes 31 % (20-50) 01/20/17 11:10 Monocytes 7 % (2-10) 01/20/17 11:10 Eosinophils 15 % (0-5) H 01/20/17 11:10 Basophils 1 % (0-3) 01/20/17 11:10 Atypical Lymphocytes 1 % 01/20/17 11:10 Platelet Estimate ADEQUATE (NORMAL) 01/20/17 11:10 Platelet Morphology NORMAL (NORMAL) 01/20/17 11:10 RBC Morph Micro Appear NORMAL (NORMAL) 01/20/17 11:10 Sodium 138 mEq/L (136-145) 01/21/17 05:17 Potassium 3.8 mEq/L (3.5-5.1) 01/21/17 05:17 Chloride 108 mEq/L (98-107) H 01/21/17 05:17 Carbon Dioxide 29.8 mEq/L (21.0-31.0) 01/21/17 05:17 Anion Gap 4.0 (7.0-16.0) L 01/21/17 05:17 BUN 24 mg/dL (7-25) 01/21/17 05:17 Creatinine 1.0 mg/dL (0.6-1.2) 01/21/17 05:17 Est GFR ( Amer) > 60.0 ml/min (>90) 01/21/17 05:17 Est GFR (Non-Af Amer) > 60.0 ml/min 01/21/17 05:17 BUN/Creatinine Ratio 24.0 01/21/17 05:17 Glucose 86 mg/dL (70-105) 01/21/17 05:17 Calcium 9.4 mg/dL (8.6-10.3) 01/21/17 05:17 Urine Source CLEAN C 01/16/17 03:30 Urine Color YELLOW 01/16/17 03:30 Urine Clarity SL. CLOUDY (CLEAR) 01/16/17 03:30 Urine pH 7.0 01/16/17 03:30 Ur Specific [place] 1.020 (1.005-1.030) 01/16/17 03:30 Urine Protein NEGATIVE mg/dL (NEGATIVE) 01/16/17 03:30 Urine Glucose (UA) NEGATIVE mg/dL (NEGATIVE) 01/16/17 03:30 Urine Ketones NEGATIVE mg/dL (NEGATIVE) 01/16/17 03:30 Urine Blood NEGATIVE (NEGATIVE) 01/16/17 03:30 Urine Nitrate NEGATIVE (NEGATIVE) 01/16/17 03:30 Urine Bilirubin NEGATIVE (NEGATIVE) 01/16/17 03:30 Urine Urobilinogen 0.2 E.U./dL (0.2 - 1.0) 01/16/17 03:30 Ur Leukocyte Esterase NEGATIVE (NEGATIVE) 01/16/17 03:30 Urine RBC NONE SEEN /hpf (0-5) 01/16/17 03:30 Urine WBC NONE SEEN /hpf (0-5) 01/16/17 03:30 Ur Epithelial Cells OCCASIONAL /lpf (FEW) 01/16/17 03:30 Urine Bacteria NONE SEEN /hpf (NONE SEEN) 01/16/17 03:30 - Physical Exam Vitals and I&O: Vital Signs Temp 97.3 F 01/21/17 08:21 Pulse 74 01/21/17 08:22 Resp 18 01/21/17 08:21 BP 120/75 01/21/17 08:22 Pulse Ox 95 01/21/17 08:21 Intake & Output 01/20/17 01/21/17 01/21/17 18:59 06:59 18:59 Intake Total 240 100 Balance 240 100 Intake: Oral 240 100 Other: # Voids 3 3 Active Medications: Current Medications Acetaminophen (Tylenol) 650 mg PO Q4HR PRN PRN Reason: Pain or Fever >101 Stop: 03/17/17 02:09 Al Hydrox/Mg Hydrox/Simethicone (Maalox) 30 ml PO Q4HR PRN PRN Reason: GI DISTRESS Stop: 03/17/17 02:09 Alprazolam (Xanax) 0.5 mg PO BID PRN; Protocol PRN Reason: Anxiety Stop: 03/17/17 02:09 Last Admin: 01/21/17 00:44 Dose: 0.5 mg Aripiprazole (Abilify) 15 mg PO DAILY IRIS PRN Reason: Protocol Stop: 03/17/17 08:59 Last Admin: 01/21/17 08:23 Dose: 15 mg Atenolol (Tenormin) 50 mg PO BID IRIS Stop: 03/17/17 08:59 Last Admin: 01/21/17 08:21 Dose: 50 mg Atorvastatin Calcium (Lipitor) 40 mg PO HS IRIS PRN Reason: Protocol Stop: 03/17/17 20:59 Last Admin: 01/20/17 20:35 Dose: 40 mg Diphenhydramine HCl (Benadryl) 50 mg PO TID PRN PRN Reason: Itching Stop: 03/17/17 02:19 Last Admin: 01/19/17 15:19 Dose: 50 mg Doxycycline Hyclate (Vibramycin) 100 mg PO Q12HR IRIS Stop: 03/17/17 14:29 Last Admin: 01/21/17 08:20 Dose: 100 mg Fluocinonide (Lidex 0.05%) 1 appl TP BID IRIS Stop: 03/17/17 08:59 Last Admin: 01/21/17 08:29 Dose: Not Given Heparin Sodium (Porcine) (Heparin) 5,000 units SUBQ Q12H IRIS Stop: 03/17/17 20:59 Last Admin: 01/21/17 08:28 Dose: Not Given Ceftriaxone Sodium 1 gm/ (Dextrose) 50 mls @ 100 mls/hr IV Q24H IRIS Stop: 03/17/17 20:59 Last Admin: 01/20/17 20:35 Dose: 100 mls/hr Lactulose (Cephulac) 20 gm PO DAILY IRIS Stop: 03/17/17 08:59 Last Admin: 01/21/17 08:29 Dose: Not Given Lisinopril (Zestril) 20 mg PO BID IRIS Stop: 03/17/17 08:59 Last Admin: 01/21/17 08:22 Dose: 20 mg Mirtazapine (Remeron) 30 mg PO HS IRIS PRN Reason: Protocol Stop: 03/17/17 20:59 Last Admin: 01/20/17 20:35 Dose: 30 mg Miscellaneous (Vte Chemical Prophylaxis Screen/ Admission) 1 ea MC PRN PRN PRN Reason: PROTOCOL Stop: 03/17/17 13:59 Naproxen (Naprosyn) 500 mg PO BID IRIS Stop: 03/17/17 08:59 Last Admin: 01/21/17 08:21 Dose: 500 mg Nifedipine (Procardia Xl) 90 mg PO DAILY IRIS Stop: 03/17/17 08:59 Last Admin: 01/21/17 08:21 Dose: 90 mg Nystatin (Mycostatin Cream) 1 appl TP BID IRIS Stop: 03/17/17 08:59 Last Admin: 01/21/17 08:29 Dose: Not Given Valsartan (Diovan) 320 mg PO DAILY IRIS Stop: 03/17/17 08:59 Last Admin: 01/21/17 08:22 Dose: 320 mg Zolpidem Tartrate (Ambien) 5 mg PO HS PRN PRN Reason: Insomnia Stop: 03/17/17 02:09 Last Admin: 01/20/17 20:35 Dose: 5 mg General: No acute distress HEENT: Atraumatic Neck: Supple Cardiovascular: Regular rate Abdomen: Bowel sounds Assessment/Plan - Problem List Patient Problems: All Active Problems Depressed bipolar disorder (Acute) F31.30 Leukocytosis (Acute) D72.829 Scabies (Acute) HTN (hypertension) (Acute) I10 - Assessment Assessment: leukocytosis scabies bipolar disorder htn depression - Plan Plan: monitor vitals/diet labs f/up consultants
--- NOTE | 2017-01-23 00:32 | Discharge Summary ---
HISTORY: This is an elderly 61-year-old female patient, the patient known to have history of smoking, history of COPD, history of hypertension, history of bipolar disease, history of [place] disease, came because of the rashes in the groin area. INITIAL DIAGNOSES: Skin lesions, leukocytosis, rule out sepsis and dermatitis, hypertension, bipolar disorder, [place] disease. The patient was treated, the patient improved, Dr. Haley also saw the patient, the patient was given antibiotics, the patient was in stable condition. The patient was then back to [facility]. JOB# [id number]
== END 2017-01-21 11:45 | disposition short-term general hospital (02) | DRG 872 ==
LOC: ER 19:40 → MSI 23:40
PROVIDERS: ADMIT Internal Medicine; ATTEND Internal Medicine
DX: A41.9 Sepsis, unspecified organism (principal); E27.1 Primary adrenocortical insufficiency; I10 Essential (primary) hypertension; B86 Scabies; F17.210 Nicotine dependence, cigarettes, uncomplicated; F31.9 Bipolar disorder, unspecified; L30.9 Dermatitis, unspecified; Z88.8 Allergy status to other drugs, medicaments and biological substances; Z88.5 Allergy status to narcotic agent; Z88.0 Allergy status to penicillin
CPT/HCPCS: 36415-UA; 80048-TC; 81001-TC; 85007-TC; 85025-TC; 85027-TC; 87086-90; J0696; J1200; J1644; Z7610